=== PATIENT | female | born 1950 | race Caucasian/White ===

== ENCOUNTER → 2017-12-09 11:18 | Outpatient (CLI) | payer MEDICARE, OTHER, SELFPAY ==
[2017-12-09 12:11] LABS: Add Manual Diff / Slide Review NO; Basophils Percent Auto 0.7 % (0-2); Eosinophils Percent Auto 2.3 % (2-4); Hematocrit 37.7 % (36-46); Hemoglobin 12.7 g/dL (12.0-16.0); Lymphocytes Percent Auto 36.6 % (25-40); Mean Corpuscular HGB Conc 33.6 % (30-36); Mean Corpuscular Hemoglobin 31.8 PG (26-34); Mean Corpuscular Volume 94.5 fL (80-100); Monocytes Percent Auto 9.3 % (3-14); Neutrophils Absolute Auto 2900 /uL (3000-5900); Neutrophils Percent Auto 51.1 % (50-75); Platelet Count 332 X10^3/uL (150-400); Red Blood Cell Count 3.99 X10^6/uL (4.0-5.2); Red Cell Distribution Width 12.8 % (11.6-14.8); White Blood Cell Count 5.6 X10^3/uL (4.5-11.0)
[2017-12-09 12:48] LABS: HEMOLYSIS < 15 (0-50); Iron 71 ug/dL (37-170)
[2017-12-09 12:51] LABS: Alanine Aminotransferase 23 IU/L (9-52); Albumin 3.9 g/dL (3.5-5.0); Albumin Globulin Ratio 1.2 (1.0-2.8); Alkaline Phosphatase 106 U/L (38-126); Aspartate Aminotransferase 17 IU/L (14-36); BUN Creatinine Ratio 25.7 (6-22); Bilirubin Total 0.4 mg/dL (0.2-1.3); Blood Urea Nitrogen 18 mg/dL (7-17); Calcium 9.3 mg/dL (8.4-10.2); Carbon Dioxide 29 mmol/L (22-32); Chloride 104 mmol/L (98-107); Estimated Glomerular Filt Rate > 60.0 mL/min (>60); Globulin 3.2 g/dL (1.7-4.1); Glucose 86 mg/dL (80-110); HEMOLYSIS < 15 (0-50); Sodium 143 mmol/L (137-145); Total Protein 7.1 g/dL (6.3-8.2)
[2017-12-09 13:03] LABS: Percent Iron Saturation 21 % (15-50); Total Iron Binding Capacity 336 ug/dL (265-497); Transferrin 263 mg/dL (206-381)
[2017-12-09 13:06] LABS: Free T3, Triiodothyronine Free 3.75 pg/mL (2.77-5.27); Free T4, Direct Thyroxine 1.32 ng/dL (0.78-2.19)
[2017-12-09 13:20] LABS: Thyroid Stimulating Hormone 0.69 uIU/mL (0.47-4.68)
[2017-12-09 13:43] LABS: Vitamin B12 305 pg/mL (239-931)
== END ==
PROVIDERS: PCP Physician Assistant; Visit Provider Physician Assistant
DX: M05.79 Rheumatoid arthritis with rheumatoid factor of multiple sites without organ or systems involvement (principal); E53.8 Deficiency of other specified B group vitamins; E61.1 Iron deficiency; Z13.220 Encounter for screening for lipoid disorders; Z13.6 Encounter for screening for cardiovascular disorders
CPT/HCPCS: 36415; 80053; 82607; 82728; 83540; 83550; 84439; 84443; 84481; 85025

== ENCOUNTER → 2018-02-25 12:41 | Outpatient (CLI) | payer MEDICARE, OTHER, SELFPAY ==
--- NOTE | 2018-02-25 12:44 | DI.MG.S_ITS ---
BILATERAL DIGITAL DIAGNOSTIC MAMMOGRAM 3D/2D SHORT-TERM FOLLOW-UP: 02/25/2018 CLINICAL: Patient returns for a 6 month follow up of the left breast. Due for bilateral imaging. Comparison is made to exams dated: 12/11/2016 mammogram, 05/15/2015 mammogram, 03/30/2014 mammogram, 12/11/2016 ultrasound, and 12/11/2016 ultrasound - [facility]. The tissue of both breasts is heterogeneously dense. This may lower the sensitivity of mammography. The oval indistinct mass located central to the nipple at posterior depth in the left breast is unchanged in size from prior comparison exams, measuring approximately 0.5 cm in greatest diameter. This mass demontrated no ultrasound correlate on comparison ultrasound of 12/11/2016. No significant masses, calcifications, or other findings are seen in either breast. IMPRESSION: INCOMPLETE: NEEDS ADDITIONAL IMAGING EVALUATION Stable 0.5 cm mass in the left breast central to the nipple at posterior depth. A targeted ultrasound is recommended for further evaluation. This exam was interpreted at Station ID: [id number]. NOTE: For mammograms, a report in lay terms will be sent to the patient. Approximately 15% of breast malignancies will not be visualized mammographically. In the management of a palpable breast mass, a negative mammogram must not discourage biopsy of a clinically suspicious lesion. Electronically Signed By: Tomasz Acosta M.D. ecl/:02/25/2018 21:00:02 letter sent: Additional Imaging Needed ACR BI-RADS Category 0: Incomplete [id number]
--- NOTE | 2018-02-25 12:44 | DI.US.S_ITS ---
ULTRASOUND OF LEFT BREAST: 02/25/2018 CLINICAL: Patient returns for additional imaging over a suspected mass in the left breast. Comparison is made to exams dated: 02/25/2018 mammogram, 12/11/2016 mammogram, and 05/15/2015 mammogram - [facility]. Real-time and Doppler ultrasound of the left breast were performed. Hand scale images of the real-time examination were reviewed. Targeted ultrasound was performed in the region of the stable 0.5 cm mass in the left breast central to the nipple at posterior depth seen on comparison diagnostic mammography. No underlying correlating breast mass or abnormality is identified. Targeted ultrasound of the left breast at 6:00 position 5 cm from the nipple demonstrates a 0.9 x 0.7 x 0.4 cm oval circumscribed mass with fatty hilum most consistent with an intramammary lymph node. The mass is hypoechoic to isoechoic to adjacent breast tissue. There is no significant vascularity on doppler ultrasound. IMPRESSION: PROBABLY BENIGN - FOLLOW-UP RECOMMENDED 1) Negative ultrasound evaluation for the 0.5 cm oval mass in the left breast central to the nipple at posterior depth seen on comparison mammography. A follow-up diagnostic mammogram in 6 months is recommended to demonstrate continued stability. 2) 0.9 cm oval mass in the left breast at 6:00 position 5 cm from the nipple is probably benign and likely represents an intramammary lymph node or slightly heterogenous fat. A follow-up diagnostic ultrasound in 6 months is recommended to demonstrate continued stability. This exam was interpreted at Station ID: [id number]. Electronically Signed By: Tomasz Acosta M.D. ecl/:02/25/2018 21:06:43 letter sent: Followup Recommended Ultrasound BI-RADS: 3 Probably benign
== END ==
PROVIDERS: PCP Physician Assistant; Visit Provider Physician Assistant
DX: R92.8 Other abnormal and inconclusive findings on diagnostic imaging of breast (principal); N63.20 Unspecified lump in the left breast, unspecified quadrant
CPT/HCPCS: 76642; 77066; G0279

== ENCOUNTER 2018-08-12 10:21 | Day surgery (SDC) | payer MEDICARE, OTHER, SELFPAY ==
[2018-08-12] VITALS (7 sets, daily range): BP systolic 103–127; BP diastolic 47–67; PULSE 59–70; RESP 14–18; TEMP 36.4–36.9; O2SAT 95–104; BMI 25.5
--- NOTE | 2018-08-12 12:02 | PM.HP.1 ---
History of Present Illness Date Patient Seen: 08/12/18 Time Patient Seen: 12:02 Chief complaint: [id number] Narrative: Colorectal cancer and a half-brother and half-sister Patient History Medical History Rheumatoid arthritis involving multiple sites with positive rheumatoid factor (Chronic) Osteopenia (Chronic 10/22/10) Hypothyroidism (Chronic Unknown) Osteopenia (Chronic Unknown) Rheumatoid arthritis (Chronic Unknown) Surgical History S/P hip replacement (Resolved 2011) S/P shoulder replacement (Resolved 1994) Status post tubal ligation (1984) Family History Brother Age: 73 Coronary artery disease Obese Mother CVA (cerebral vascular accident) Father No problems noted. Social History household members: none Smoking Status: Former smoker (Quit in 1974) Family & Social History Family History Brother Age: 73 Coronary artery disease Obese Mother CVA (cerebral vascular accident) Father No problems noted. Social History: household members none Tobacco & Substance use: Smoking Status Former smoker Meds Home Medications Medication Instructions Recorded Confirmed Type ibuprofen 200 mg PO QDAY #0 01/29/13 08/12/18 History Calcium 600 600 mg PO DAILY 08/12/18 08/12/18 History Allergies Allergy/AdvReac Type Severity Reaction Status Date / Time No Known Drug Allergies Allergy Unverified 08/12/18 11:40 Exam Vital Signs (past 8 hours): - 08/12/18 10:58 Temperature 97.5 F L Pulse Rate 66 Respiratory Rate 18 Blood Pressure 127/67 Pulse Oximetry 98 Oxygen Delivery Method Room Air Narrative Exam Narrative: Oropharynx free of lesions Chest clear to auscultation percussion Cardiac exam reveals no S3 or murmur Assessment & Plan Assessment & Plan narrative: Family history of colorectal cancer. Last colonoscopy 13 years ago. Need for follow-up colonoscopy. Risks, benefits, alternatives have been explained.
--- NOTE | 2018-08-12 12:03 | PM.OP.ENDO ---
Operative Date/Time/Diagnoses Date of procedure: 08/12/18 Time of procedure: 12:03 Pre-op diagnosis: See indication and findings Procedure & Clinicians Study performed: Colonoscopy Same procedure as scheduled: Yes Indications: Family history of colon cancer Surgeon: Simon Max Procedure Notes Procedure in detail: After informed consent was obtained the patient was placed in left lateral decubitus position. The video colonoscope was introduced the rectum and slowly advanced to the cecum. On slow withdrawal mucosa was carefully examined. The scope was removed. The patient tolerated procedure well. Blood loss none Complications none Sedation Total sedation time 18 min Fentanyl 100 mcg Versed 6 mg IV titration Findings 1. Normal colonoscopy to cecum If at high risk due to these to have siblings with colon cancer than she should have follow-up colonoscopy in 5 years.
[2018-08-12] MEDS: MIDAZOLAM 5 MG/5 ML VIAL IV (12:35)
[2018-08-12] MEDS: fentaNYL 250 MCG/5 ML INJ IV (12:36)
--- NOTE | 2018-08-12 13:16 | SUR.PHASEI ---
Aroused to voice, denies pain/nausea. HOB up, juice given.States that she feels drowsy.
--- NOTE | 2018-08-12 13:23 | SUR.PHASEI ---
glasses and hearing aids returned to patient.
== END 2018-08-12 13:43 | disposition home or self-care (01) ==
PROVIDERS: PCP Physician Assistant; Visit Provider Internal Medicine Gastroenterology
PROC: 0DJD8ZZ Inspection of Lower Intestinal Tract, Via Natural or Artificial Opening Endoscopic (ICD-10-PCS; CPT 45378; principal; 2018-08-12 11:30)
DX: Z12.11 Encounter for screening for malignant neoplasm of colon (principal); Z80.0 Family history of malignant neoplasm of digestive organs; M06.9 Rheumatoid arthritis, unspecified; E03.9 Hypothyroidism, unspecified; Z87.891 Personal history of nicotine dependence
CPT/HCPCS: G0105; J2250; J3010

== ENCOUNTER → 2018-12-08 12:51 | Outpatient (CLI) | payer MEDICARE, OTHER, SELFPAY ==
[2018-12-08 13:27] LABS: Add Manual Diff / Slide Review NO; Basophils Absolute Auto 0 /uL (0-100); Basophils Percent Auto 0.7 % (0-2); Eosinophils Absolute Auto 100 /uL (0-450); Eosinophils Percent Auto 1.6 % (2-4); Hematocrit 39.2 % (36-46); Hemoglobin 13.2 g/dL (12.0-16.0); Lymphocytes Absolute Auto 2200 /uL (1100-4500); Mean Corpuscular HGB Conc 33.6 % (30-36); Mean Corpuscular Hemoglobin 32.1 PG (26-34); Mean Corpuscular Volume 95.8 fL (80-100); Monocytes Absolute Auto 600 /uL (0-900); Monocytes Percent Auto 10.8 % (3-14); Neutrophils Absolute Auto 2400 /uL (1500-7000); Neutrophils Percent Auto 45.9 % (50-75); Platelet Count 261 X10^3/uL (150-400); Red Cell Distribution Width 12.9 % (11.6-14.8); White Blood Cell Count 5.3 X10^3/uL (4.5-11.0)
[2018-12-08 14:24] LABS: Alanine Aminotransferase 17 IU/L (9-52); Albumin 4.3 g/dL (3.5-5.0); Albumin Globulin Ratio 1.4 (1.0-2.8); Alkaline Phosphatase 99 U/L (38-126); Aspartate Aminotransferase 19 IU/L (14-36); BUN Creatinine Ratio 23.8 (6-22); Bilirubin Total 0.4 mg/dL (0.2-1.3); Blood Urea Nitrogen 19 mg/dL (7-17); Calcium 9.7 mg/dL (8.4-10.2); Carbon Dioxide 28 mmol/L (22-32); Chloride 106 mmol/L (98-107); Estimated Glomerular Filt Rate > 60.0 mL/min (>60); Glucose 99 mg/dL (80-110); HEMOLYSIS < 15 (0-50); Iron 83 ug/dL (37-170); Potassium 5.3 mmol/L (3.4-5.1); Sodium 142 mmol/L (137-145); Total Protein 7.3 g/dL (6.3-8.2)
[2018-12-08 15:11] LABS: Vitamin B12 286 pg/mL (239-931)
[2018-12-08 15:30] LABS: Vitamin D 25 Hydroxy (D3) 32.7 ng/mL (30.0-100.0)
== END ==
PROVIDERS: PCP Physician Assistant; Visit Provider Physician Assistant
DX: E53.8 Deficiency of other specified B group vitamins (principal); E55.9 Vitamin D deficiency, unspecified; E61.1 Iron deficiency; M05.79 Rheumatoid arthritis with rheumatoid factor of multiple sites without organ or systems involvement; M85.80 Other specified disorders of bone density and structure, unspecified site
CPT/HCPCS: 36415; 80053; 82306; 82607; 83540; 85025

== ENCOUNTER → 2018-12-23 14:46 | Outpatient (CLI) | payer MEDICARE, OTHER, SELFPAY ==
[2018-12-23 17:11] LABS: Free T3, Triiodothyronine Free 4.01 pg/mL (2.77-5.27); Free T4, Direct Thyroxine 1.11 ng/dL (0.78-2.19)
[2018-12-23 17:26] LABS: Thyroid Stimulating Hormone 0.67 uIU/mL (0.47-4.68)
== END ==
PROVIDERS: PCP Physician Assistant; Visit Provider Physician Assistant
DX: R53.83 Other fatigue (principal)
CPT/HCPCS: 36415; 84439; 84443; 84481

== ENCOUNTER → 2018-12-30 13:04 | Outpatient (CLI) | payer MEDICARE, OTHER, SELFPAY ==
--- NOTE | 2018-12-30 13:06 | DI.MG.S_ITS ---
BILATERAL DIGITAL DIAGNOSTIC MAMMOGRAM 3D/2D: 12/30/2018 CLINICAL: Patient returns for a 6 month follow up of the left breast. Due bilaterally. Comparison is made to exams dated: 02/25/2018 mammogram, 12/11/2016 ultrasound, 12/11/2016 mammogram, and 03/30/2014 mammogram - [facility]. The tissue of both breasts is heterogeneously dense. This may lower the sensitivity of mammography. There is a stable benign 0.5 cm oval equal density mass with a circumscribed margin in the left breast central to the nipple posterior depth. No other significant masses, calcifications, or other findings are seen in either breast. IMPRESSION: INCOMPLETE: NEEDS ADDITIONAL IMAGING EVALUATION The small mass central to the nipple in the posterior left breast is stable compared ot the prior studies. Findings are benign given stability over time. An ultrasound will be performed to evaluate the mass seen at the 6:00 position on prior ultrasound. This exam was interpreted at Station ID: [id number]. NOTE: For mammograms, a report in lay terms will be sent to the patient. Approximately 15% of breast malignancies will not be visualized mammographically. In the management of a palpable breast mass, a negative mammogram must not discourage biopsy of a clinically suspicious lesion. Electronically Signed By: Scott Dent M.D. ddp/:12/30/2018 14:33:14 ACR BI-RADS Category 0: Incomplete [id number]
--- NOTE | 2018-12-30 13:06 | DI.US.S_ITS ---
LIMITED ULTRASOUND OF LEFT BREAST: 12/30/2018 CLINICAL: Patient returns for a 10 month follow up of the left breast, 6 month follow up had been requested. Comparison is made to exams [facility]2018 [facility] flow and real-time ultrasound of the left breast 6 o'clock region were performed on the areas of interest. There is 0.9 cm x 0.8 cm x 0.4 cm oval mass with an indistinct margin in the left breast at 6 o'clock anterior depth. This oval mass is hypoechoic. This abnormality is not significantly changed. There are calcifications within the mass. Color flow imaging demonstrates that there is no vascularity present. IMPRESSION: PROBABLY BENIGN The 0.9 cm x 0.8 cm x 0.4 cm oval mass in the left breast is probably benign. A follow-up ultrasound in 12 months is recommended to demonstrate 2 year stability. This exam was interpreted at Station ID: [id number]. Electronically Signed By: Scott demarco/:12/30/2018 14:36:03 letter sent: Followup Recommended Ultrasound BI-RADS: 3 Probably benign
== END ==
PROVIDERS: PCP Physician Assistant; Visit Provider Physician Assistant
DX: R92.8 Other abnormal and inconclusive findings on diagnostic imaging of breast (principal); N63.20 Unspecified lump in the left breast, unspecified quadrant
CPT/HCPCS: 76642; 77066; G0279

== ENCOUNTER → 2019-02-05 09:30 | Outpatient (CLI) | payer MEDICARE, OTHER, SELFPAY ==
--- NOTE | 2019-02-05 09:34 | DI.RAD.S_ITS ---
PROCEDURE: XR HIP W PEL IF DONE RT 2V INDICATIONS: Low back and right hip pain Hx of RA TECHNIQUE: AP pelvis with lateral view(s) of the right hip(s). COMPARISON: None. FINDINGS: Bones: No fractures or dislocations. Pelvic ring appears intact. No suspicious bony lesions. Soft tissues: The visualized bowel gas pattern is normal. No suspicious soft tissue calcifications. IMPRESSION: Prior left total hip arthroplasty, near severe hip joint osteoarthritis is present on the right. There is near [id number] articulation. No trauma found. Dictated by: Fran Ford M.D. on 02/05/2019 at 11:08 Approved by: Fran Ford M.D. on 02/05/2019 at 11:09
--- NOTE | 2019-02-05 09:34 | DI.RAD.S_ITS ---
PROCEDURE: XR LUMBAR SPINE 2-3V INDICATIONS: Low back and right hip pain Hx of RA TECHNIQUE: 2 views of the lumbar spine were acquired. COMPARISON: None. FINDINGS: Bones: 5 [id number] vertebrae are present. There is mildly levoscoliotic bony alignment centered at L2-3. No vertebral body compression fractures. No suspicious bony lesions. Soft tissues: Overlying bowel gas pattern is normal. No suspicious soft tissue calcifications. IMPRESSION: Mild degenerative disc disease and facet osteoarthritis from L2-3 inferiorly with associated mild levoscoliosis. The degenerative changes are most pronounced at L4-5 and L5-S1. Spinal and foraminal stenosis may be present at those 2 levels. Dictated by: Fran Ford M.D. on 02/05/2019 at 11:07 Approved by: Fran Ford M.D. on 02/05/2019 at 11:08
== END ==
PROVIDERS: PCP Physician Assistant; Visit Provider Physician Assistant
DX: M54.5 Low back pain (principal); M25.551 Pain in right hip; M16.11 Unilateral primary osteoarthritis, right hip; M05.79 Rheumatoid arthritis with rheumatoid factor of multiple sites without organ or systems involvement; M51.36 Other intervertebral disc degeneration, lumbar region; M47.816 Spondylosis without myelopathy or radiculopathy, lumbar region; M47.817 Spondylosis without myelopathy or radiculopathy, lumbosacral region; M41.86 Other forms of scoliosis, lumbar region; Z96.642 Presence of left artificial hip joint
CPT/HCPCS: 72100; 73502

== ENCOUNTER → 2019-02-17 08:23 | Outpatient (CLI) | payer MEDICARE, OTHER, SELFPAY ==
[2019-02-17 09:24] LABS: Cholesterol 226 mg/dL (140-199); HDL Cholesterol 96 mg/dL (40-60); LDL Cholesterol Calculated 114 mg/dL (<100); Triglycerides 80 mg/dL (35-150)
[2019-02-17 09:36] LABS: Vitamin D 25 Hydroxy (D3) 35.2 ng/mL (30.0-100.0)
[2019-02-17 10:14] LABS: Vitamin B12 569 pg/mL (239-931)
== END ==
PROVIDERS: PCP Physician Assistant; Visit Provider Physician Assistant
DX: E53.8 Deficiency of other specified B group vitamins (principal); E55.9 Vitamin D deficiency, unspecified; M85.80 Other specified disorders of bone density and structure, unspecified site; Z13.220 Encounter for screening for lipoid disorders; Z13.6 Encounter for screening for cardiovascular disorders
CPT/HCPCS: 36415; 80061; 82306; 82607

== ENCOUNTER → 2019-03-30 10:18 | Outpatient (CLI) | payer MEDICARE, OTHER, SELFPAY ==
[2019-03-30 11:35] LABS: Add Manual Diff / Slide Review NO; Basophils Absolute Auto 0 /uL (0-100); Basophils Percent Auto 0.4 % (0-2); Eosinophils Absolute Auto 100 /uL (0-450); Eosinophils Percent Auto 1.8 % (2-4); Hematocrit 40.4 % (36-46); Hemoglobin 13.7 g/dL (12.0-16.0); Lymphocytes Absolute Auto 1600 /uL (1100-4500); Lymphocytes Percent Auto 28.3 % (25-40); Mean Corpuscular Hemoglobin 32.5 PG (26-34); Mean Corpuscular Volume 95.4 fL (80-100); Monocytes Absolute Auto 600 /uL (0-900); Monocytes Percent Auto 10.5 % (3-14); Neutrophils Absolute Auto 3300 /uL (1500-7000); Platelet Count 296 X10^3/uL (150-400); Red Blood Cell Count 4.23 X10^6/uL (4.0-5.2); Red Cell Distribution Width 12.7 % (11.6-14.8); White Blood Cell Count 5.6 X10^3/uL (4.5-11.0)
[2019-03-30 11:49] LABS: Prothrombin Time 11.2 SECONDS (10.1-12.7)
[2019-03-30 12:05] LABS: Appearance Urine UA SL CLOUDY; Bilirubin Urine UA NEGATIVE (NEGATIVE); Color Urine UA YELLOW; Glucose Urine UA NEGATIVE (Negative); Ketones Urine UA NEGATIVE (NEGATIVE); Leukocyte Esterase Urine UA NEGATIVE (NEGATIVE); Nitrite Urine UA NEGATIVE (Negative); Occult Blood Urine UA 2+ (Negative); Protein Urine UA TRACE (Negative); Specific Gravity Urine UA >=1.030 (1.000-1.035); Urobilinogen Urine UA 0.2 E.U./dL (0.2)
[2019-03-30 12:07] LABS: Alanine Aminotransferase 18 IU/L (9-52); Albumin 4.4 g/dL (3.5-5.0); Albumin Globulin Ratio 1.3 (1.0-2.8); Alkaline Phosphatase 109 U/L (38-126); Aspartate Aminotransferase 22 IU/L (14-36); Bilirubin Total 0.5 mg/dL (0.2-1.3); Blood Urea Nitrogen 20 mg/dL (7-17); Calcium 9.8 mg/dL (8.4-10.2); Carbon Dioxide 27 mmol/L (22-32); Chloride 103 mmol/L (98-107); Estimated Glomerular Filt Rate > 60.0 mL/min (>60); Globulin 3.3 g/dL (1.7-4.1); Glucose 104 mg/dL (80-110); HEMOLYSIS < 15 (0-50); Potassium 5.1 mmol/L (3.4-5.1); Sodium 140 mmol/L (137-145); Total Protein 7.7 g/dL (6.3-8.2)
[2019-03-30 12:39] LABS: Bacteria Urine Many (>30); Culture Indicated Urine Cult Not Indicated; Mucus Urine 1+ (Negative); RBC Urine 1-5/HPF (0-5/HPF); Squamous Epithelial Cell Urine 1-5 /HPF (0-5/HPF); WBC Urine 1-5/HPF (0-5/HPF)
== END ==
PROVIDERS: PCP Physician Assistant; Visit Provider Physician Assistant
DX: Z01.818 Encounter for other preprocedural examination (principal)
CPT/HCPCS: 36415; 80053; 81001; 85025; 85610; 93005

== ENCOUNTER → 2019-08-05 09:22 | Outpatient (CLI) | payer MEDICARE, OTHER, SELFPAY | PROVIDERS: PCP Family Medicine; Visit Provider Physician Assistant | DX: R30.0 Dysuria (principal) | CPT/HCPCS: 87077; 87086; 87147; 87186 ==

== ENCOUNTER → 2020-04-21 11:15 | Outpatient (CLI) | payer MEDICARE, OTHER, SELFPAY ==
[2020-04-21 12:05] LABS: BUN Creatinine Ratio 27.1 (6-22); Blood Urea Nitrogen 19 mg/dL (7-17); Calcium 9.2 mg/dL (8.4-10.2); Carbon Dioxide 28 mmol/L (22-32); Chloride 106 mmol/L (98-107); Estimated Glomerular Filt Rate > 60.0 mL/min (>60); Glucose 91 mg/dL (80-110); HEMOLYSIS < 15 (0-50); Potassium 4.5 mmol/L (3.4-5.1); Sodium 138 mmol/L (137-145)
[2020-04-21 12:37] LABS: TSH w/ Reflex to FT4 0.62 uIU/mL (0.47-4.68)
[2020-04-22 06:57] LABS: Homocysteine 12.2 umol/L (0.0-19.2)
[2020-04-23 16:07] LABS: Methylmalonic Acid,Serum 201 nmol/L (0-378)
== END ==
PROVIDERS: PCP Family Medicine; Referring Provider Family Medicine; Visit Provider Family Medicine
DX: E53.8 Deficiency of other specified B group vitamins (principal); R53.83 Other fatigue; Z51.81 Encounter for therapeutic drug level monitoring; Z79.1 Long term (current) use of non-steroidal anti-inflammatories (NSAID)
CPT/HCPCS: 36415; 80048; 83090; 83921; 84443

== ENCOUNTER → 2020-05-30 12:33 | Outpatient (CLI) | payer MEDICARE, OTHER, SELFPAY ==
--- NOTE | 2020-05-30 12:35 | DI.US.S_ITS ---
LIMITED ULTRASOUND OF LEFT BREAST: 05/30/2020 CLINICAL: 12 month follow-up of mass left breast. Comparison is made to exams dated: 05/30/2020 mammogram, 12/30/2018 ultrasound, 12/30/2018 mammogram, 02/25/2018 ultrasound, 02/25/2018 mammogram, and 12/11/2016 ultrasound - [facility]. Real-time ultrasound of the left breast 6 o'clock region was performed on the area of interest. The previously identified oval mass in the left breast at 6 o'clock middle depth is no longer seen. IMPRESSION: BENIGN There is no sonographic evidence of malignancy. Previously visualized mass at 6:00 no longer visualized. This may correspond to the mammographic finding which is also no longer visualized. Findings may have represented an enlarged intramammary lymph node. Return to annual mammogram screening schedule is recommended. This exam was interpreted at Station ID: [id number]. Electronically Signed By: Scott Dent M.D. ddp/:05/30/2020 13:45:45 letter sent: Normal Exam Ultrasound BI-RADS: 2 Benign
--- NOTE | 2020-05-30 12:35 | DI.MG.S_ITS ---
BILATERAL DIGITAL DIAGNOSTIC MAMMOGRAM 3D/2D: 05/30/2020 CLINICAL: Two year stability check. Comparison is made to exams dated: 12/30/2018 mammogram, 02/25/2018 mammogram, and 12/11/2016 mammogram - [facility]. The tissue of both breasts is heterogeneously dense. This may lower the sensitivity of mammography. The oval mass in the left breast central to the nipple posterior depth is no longer seen. No other significant masses, calcifications, or other findings are seen in either breast. IMPRESSION: INCOMPLETE: NEEDS ADDITIONAL IMAGING EVALUATION An ultrasound is recommended for followup of the previously described mass at the 6:00 position seen on ultrasound. Ultrasound will be performed immediately following the current exam. This exam was interpreted at Station ID: [id number]. NOTE: For mammograms, a report in lay terms will be sent to the patient. Approximately 15% of breast malignancies will not be visualized mammographically. In the management of a palpable breast mass, a negative mammogram must not discourage biopsy of a clinically suspicious lesion. Electronically Signed By: Scott Dent M.D. dddevin/:05/30/2020 13:29:39 ACR BI-RADS Category 0: Incomplete [id number]
== END ==
PROVIDERS: PCP Family Medicine; Referring Provider Family Medicine; Visit Provider Family Medicine
DX: R92.8 Other abnormal and inconclusive findings on diagnostic imaging of breast (principal); N63.25 Unspecified lump in the left breast, overlapping quadrants
CPT/HCPCS: 76642; 77066; G0279

== ENCOUNTER → 2020-07-18 14:33 | Outpatient (CLI) | payer MEDICARE, OTHER, SELFPAY ==
[2020-07-18] MEDS: COVID-19 VACC #1, MRNA(MOD) 100 MCG/0.5 ML VIAL IM (14:37)
== END ==
PROVIDERS: PCP Family Medicine; Visit Provider Internal Medicine
DX: Z23 Encounter for immunization (principal)
CPT/HCPCS: 0011A; 91301

== ENCOUNTER → 2020-08-15 14:39 | Outpatient (CLI) | payer MEDICARE, OTHER, SELFPAY ==
[2020-08-15] MEDS: COVID-19 VACC #2, MRNA(MOD) 100 MCG/0.5 ML VIAL IM (14:47)
== END ==
PROVIDERS: PCP Family Medicine; Visit Provider Internal Medicine
DX: Z23 Encounter for immunization (principal)
CPT/HCPCS: 0012A; 91301

== ENCOUNTER 2021-02-03 16:10 | Emergency (ER) | payer MEDICARE, OTHER, SELFPAY ==
[2021-02-03 16:42] VITALS: BP 140/100; PULSE 70; RESP 20; TEMP 37.1; O2SAT 97; BMI 25.7
--- NOTE | 2021-02-03 17:24 | ED_ITS ---
HPI - Eye Problem General Chief complaint: Eye Problems Stated complaint: Euphorbia sap poss in both eyes/pain Time Seen by Provider: 02/03/21 17:09 History of Present Illness HPI Narrative: 70-year-old woman with history of rheumatoid arthritis presents after chopping up a Euphorbia plant for disposal and accidentally got some of the latex sap in her eyes. She comes in with significant pain and tearing from the exposure. Related Data Home Medications Medication Instructions Recorded Confirmed cholecalciferol (vitamin D3) 3,000 unit PO DAILY PRN ml 01/05/19 05/26/20 cyanocobalamin (vitamin B-12) 1,000 mcg IM QMONTH 03/01/19 05/26/20 1,000 mcg/mL injection solution ibuprofen 200 mg tablet 400 mg PO QAM tab 03/01/19 05/26/20 Allergies Allergy/AdvReac Type Severity Reaction Status Date / Time No Known Drug Allergies Allergy Verified 02/03/21 16:41 Review of Systems Review of Systems Narrative: Pertinent positive and negative findings as per HPI Remainder of review of systems is otherwise unremarkable for Constitutional: Fevers, chills, weakness ENT: No sore throat, neck pain, ear pain CV: Chest pain, palpitations, Respiratory: Cough, wheeze, dyspnea GI: Nausea, vomiting, diarrhea, : Dysuria, hematuria, Patient History Medical History Hypothyroidism (10/22/10) NSAID long-term use Osteopenia (10/22/10) Osteopenia (Unknown) Pernicious anemia Rheumatoid arthritis (Unknown) Rheumatoid arthritis involving multiple sites with positive rheumatoid factor (~195) Surgical History History of left hip replacement (~2019) History of right hip replacement (~2011) S/P shoulder replacement (1994) Status post tubal ligation (1984) Family History Brother Age: 75 Coronary artery disease Obese Mother CVA (cerebral vascular accident) Father No problems noted. Social History household members: none Smoking Status: Former smoker Tobacco: How many years used: 4 second hand exposure: No alcohol intake: current substance use type: does not use Smoking Status: Former smoker tobacco type: cigarettes alcohol intake frequency: holidays/special occasions only Substance Use Type: does not use Exam Narrative Exam Narrative: General: Alert appropriate in no acute distress HEENT: Sclera are mildly injected, no obvious corneal clouding, significant tearing and mild erythema around the eyes from rubbing. Too much tearing and pain for formal visual testing but reports no noted significant visual changes. Respiratory: Able to speak in full sentences, no obvious respiratory distress Skin: No obvious rashes, warm and dry Neurologic: Grossly intact no obvious asymmetries or abnormalities Psych: appropriate insight and affect, cooperative Initial Vital Signs Initial Vital Signs: Vital Signs Temperature 98.7 F 02/03/21 16:42 Pulse Rate 70 02/03/21 16:42 Respiratory Rate 20 02/03/21 16:42 Blood Pressure 140/100 H 02/03/21 16:42 Pulse Oximetry 97 02/03/21 16:42 Course Orders Ordered: Discontinued Medications Proparacaine HCl (Proparacaine 0.5% Ophth Hope) 1 drops EYE-BOTH NOW ONE Stop: 02/03/21 17:46 Last Admin: 02/03/21 17:56 Dose: 1 drop Documented by: NANCY Vital Signs Vital signs: Vital Signs - 8 hr 02/03/21 16:42 Temperature 98.7 F Pulse Rate 70 Respiratory Rate 20 Blood Pressure 140/100 H Pulse Oximetry 97 MDM - Eye Problem MDM Narrative Medical decision making narrative: 70-year-old woman who was working with you for be a species in her green house notes significant white milky sap from the cutting some tried to be very careful but inadvertently did get some in both eyes. Initially went to urgent care after washing eyes out well at home. Significant pain tearing and does not describe any vision change at this time but is having too much tearing and pain to do formal visual acuity testing or intra-ocular pressures. Pre contact with poison Control indicated their only recommendation was thorough rinsing of the eyes and pain control as needed. There is no ophthalmology on-call for [facility] formally this weekend. thoroughly rinsed with Asad lens with significant improvement in pain. Declined any oral pain control. Safe for home discharge. 02/04/21 phone call follow-up. She notes mild scleral irritation and still a bit of grainy feeling in the right eye but vision is otherwise okay and she is doing well. Discharge Plan Departure Patient Disposition: Home Clinical Impression: Chemical exposure of eye Instructions: DI for Chemical Eye Burn Activity Restrictions/Additional Instructions: Thank you for coming in today Euphorpia sap in your eyes technically counts as a chemical eye burn. In the emergency room, you are given some numbing eye drops and then we used copious amounts of irrigation with the Asad lens (the special contact lens made just for that purpose). After all of the irrigation, you have clearly improved. If you continue to have some burning this evening you can use simple saline drops to continue to rinse the eyes. If you are noticing any cloudiness to your vision or continue difficulty with your eyes tomorrow please call your eye doctor and ask to speak to the doctor car sales consultant. It is okay to use Tylenol to help with pain If you have new or worsening symptoms please feel free to return to the ER this evening. I wish you the best Prescriptions: No Action cholecalciferol (vitamin D3) 1,000 unit/drop drops 3,000 unit PO DAILY PRNRF: 0 cyanocobalamin (vitamin B-12) 1,000 mcg/mL solution 1,000 mcg IM QMONTH RF: 0 ibuprofen 200 mg tablet 400 mg PO QAM RF: 0 Referrals: Carey Guillen DO [Primary Care Provider] -
[2021-02-03] MEDS: PROPARACAINE 0.5% OPHTH SOL 1 DROPS EYE-BOTH (17:56)
[2021-02-03 19:40] VITALS: BP 137/76; PULSE 77; RESP 17; O2SAT 99
--- NOTE | 2021-02-03 19:53 | PC.NURSE ---
I spoke with poison control and updated them on the status of the patient.
== END 2021-02-03 19:57 | disposition home or self-care (01) ==
PROVIDERS: Emergency Provider Emergency Medicine; PCP Family Medicine
DX: T65.891A Toxic effect of other specified substances, accidental (unintentional), initial encounter (principal); T26.92XA Corrosion of left eye and adnexa, part unspecified, initial encounter; T26.91XA Corrosion of right eye and adnexa, part unspecified, initial encounter; Y93.H2 Activity, gardening and landscaping
CPT/HCPCS: 99283; 99284

== ENCOUNTER → 2021-03-30 07:38 | Outpatient (CLI) | payer MEDICARE, OTHER, SELFPAY ==
[2021-03-30 09:12] LABS: Alanine Aminotransferase 17 IU/L (<35); Albumin 4.5 g/dL (3.5-5.0); Albumin Globulin Ratio 1.6 (1.0-2.8); Alkaline Phosphatase 97 U/L (38-126); Aspartate Aminotransferase 25 IU/L (14-36); BUN Creatinine Ratio 20.3 (6-22); Bilirubin Total 0.6 mg/dL (0.2-1.3); Blood Urea Nitrogen 15 mg/dL (7-17); Calcium 9.3 mg/dL (8.4-10.2); Carbon Dioxide 29 mmol/L (22-32); Chloride 106 mmol/L (98-107); Cholesterol 227 mg/dL (140-199); Estimated Glomerular Filt Rate > 60.0 mL/min (>60); Globulin 2.9 g/dL (1.7-4.1); Glucose 102 mg/dL (80-110); HDL Cholesterol 83 mg/dL (40-60); HEMOLYSIS < 15 (0-50); LDL Cholesterol Calculated 134 mg/dL (<100); Potassium 4.4 mmol/L (3.4-5.1); Sodium 142 mmol/L (137-145); Total Protein 7.4 g/dL (6.3-8.2); Triglycerides 51 mg/dL (35-150)
[2021-03-30 09:29] LABS: Vitamin D 25 Hydroxy (D3) 46.5 ng/mL (30.0-100.0)
[2021-03-30 09:59] LABS: Vitamin B12 482 pg/mL (239-931)
== END ==
PROVIDERS: PCP Family Medicine; Referring Provider Family Medicine; Visit Provider Family Medicine
DX: D51.0 Vitamin B12 deficiency anemia due to intrinsic factor deficiency (principal); E78.5 Hyperlipidemia, unspecified; M85.80 Other specified disorders of bone density and structure, unspecified site; E53.8 Deficiency of other specified B group vitamins; D55.9 Anemia due to enzyme disorder, unspecified
CPT/HCPCS: 36415; 80053; 80061; 82306; 82607

== ENCOUNTER → 2021-04-23 12:01 | Outpatient (CLI) | payer MEDICARE, OTHER, SELFPAY ==
--- NOTE | 2021-04-23 12:03 | DI.US.S_ITS ---
PROCEDURE: US CAROTID DOPPLER BI INDICATIONS: STENOSIS TECHNIQUE: Color and pulse Doppler interrogation was performed of both carotid systems, with image documentation and velocity measurements. COMPARISON: None. FINDINGS: Stenosis calculations are based on SRU (Society of Radiologists in Ultrasound) criteria. The flow velocities and the arterial waveforms are normal within both carotid arterial systems. The estimated degree of internal carotid artery stenosis is less than 50%. Antegrade flow is confirmed within both vertebral arteries. IMPRESSION: No hemodynamically significant stenosis is seen. Dictated by: Jassi Long M.D. on 04/23/2021 at 12:18 Approved by: Jassi Long M.D. on 04/23/2021 at 12:19
== END ==
PROVIDERS: PCP Family Medicine; Referring Provider Family Medicine; Visit Provider Family Medicine
DX: I65.29 Occlusion and stenosis of unspecified carotid artery (principal); M05.79 Rheumatoid arthritis with rheumatoid factor of multiple sites without organ or systems involvement; E78.5 Hyperlipidemia, unspecified; Z82.49 Family history of ischemic heart disease and other diseases of the circulatory system
CPT/HCPCS: 93880

== ENCOUNTER 2021-09-17 10:40 | Emergency (ER) | payer MEDICARE, OTHER, SELFPAY ==
--- NOTE | 2021-09-17 11:04 | DI.RAD.S_ITS ---
PROCEDURE: XR CHEST 1V INDICATIONS: Shortness of breath TECHNIQUE: One view of the chest was acquired. COMPARISON: CR, CHEST 2 VIEW, 05/02/2014, 13:41. FINDINGS: Surgical changes and devices: None. Lungs and pleura: There are infiltrates in left mid to lower lung zone and right lower lung zone, suspicious for pneumonia. No pleural effusions or pneumothorax. Mediastinum: Mediastinal contours appear normal. Heart size is normal. Bones and chest wall: No suspicious bony lesions. Overlying soft tissues appear unremarkable. There is left shoulder arthroplasty. Severe right glenohumeral joint degeneration. IMPRESSION: Bilateral pneumonia. Dictated by: Aden Lees M.D. on 09/17/2021 at 11:44 Approved by: Aden Lees M.D. on 09/17/2021 at 11:46
[2021-09-17 11:05] VITALS: BP 150/65; PULSE 92; RESP 18; TEMP 37; O2SAT 96; BMI 25.7
[2021-09-17 11:20] LABS: Add Manual Diff / Slide Review NO; Basophils Absolute Auto 0 /uL (0-100); Basophils Percent Auto 0.3 % (0-2); Eosinophils Absolute Auto 0 /uL (0-450); Eosinophils Percent Auto 0.3 % (2-4); Hematocrit 36.1 % (36-46); Hemoglobin 12.3 g/dL (12.0-16.0); Lymphocytes Absolute Auto 1100 /uL (1100-4500); Lymphocytes Percent Auto 7.9 % (25-40); Mean Corpuscular HGB Conc 34.1 % (30-36); Mean Corpuscular Volume 93.7 fL (80-100); Monocytes Absolute Auto 1300 /uL (0-900); Monocytes Percent Auto 9.4 % (3-14); Neutrophils Absolute Auto 11000 /uL (1500-7000); Neutrophils Percent Auto 82.1 % (50-75); Platelet Count 223 X10^3/uL (150-400); Red Blood Cell Count 3.85 X10^6/uL (4.0-5.2); Red Cell Distribution Width 12.8 % (11.6-14.8); White Blood Cell Count 13.4 X10^3/uL (4.5-11.0)
--- NOTE | 2021-09-17 11:21 | ED.GENADULT ---
HPI - General Adult General Chief complaint: Back Pain/Injury Stated complaint: R/O blood clot in lungs- sent by [facility] Time Seen by Provider: 09/17/21 11:03 Source: patient Mode of arrival: Ambulatory Limitations: no limitations History of Present Illness HPI narrative: Patient is a 71-year-old female. She was sent over from the walk-in clinic for evaluation of potential pulmonary embolism. She went to the walk-in clinic because she was having sharp pain in her right lower lung shook with deep breaths. When she is not taking a deep breath she is not having discomfort. She is not having any shortness of breath. No chest pain. The symptoms started couple days ago after she got off of a flight from [place]. She has never had blood clot in the past. No swelling in her legs. No prior cardiac issues. Not on anticoagulation. No coughing. No fevers. Has not tried anything for her symptoms prior to arrival. Related Data Home Medications Medication Instructions Recorded Confirmed cholecalciferol (vitamin D3) 3,000 unit PO DAILY PRN ml 01/05/19 04/13/21 cyanocobalamin (vitamin B-12) 1,000 mcg IM QMONTH 03/01/19 04/13/21 1,000 mcg/mL injection solution ibuprofen 200 mg tablet 400 mg PO QAM tab 03/01/19 04/13/21 Previous Rx's Medication Instructions Recorded azithromycin 250 mg tablet See Rx Instructions .ROUTE 09/17/21 .COMPLEX #6 tab Allergies Allergy/AdvReac Type Severity Reaction Status Date / Time No Known Drug Allergies Allergy Verified 09/17/21 11:22 Review of Systems Review of Systems ROS Unobtainable: All systems reviewed & are unremarkable except as noted in HPI and below Patient History Medical History Hypothyroidism (10/22/10) NSAID long-term use Osteopenia (05/04/08) Pernicious anemia Rheumatoid arthritis (Unknown) Rheumatoid arthritis involving multiple sites with positive rheumatoid factor (~195) Surgical History History of left hip replacement (~2019) History of right hip replacement (~2011) S/P shoulder replacement (1994) Status post tubal ligation (1984) Family History Brother Age: 75 Coronary artery disease Obese Mother CVA (cerebral vascular accident) Father No problems noted. Social History household members: none Smoking Status: Former smoker Tobacco: How many years used: 4 second hand exposure: No alcohol intake: current substance use type: does not use Smoking Status: Former smoker tobacco type: cigarettes alcohol intake frequency: holidays/special occasions only Substance Use Type: does not use Exam Initial Vital Signs Initial Vital Signs: Vital Signs Temperature 98.6 F 09/17/21 11:05 Pulse Rate 92 H 09/17/21 11:05 Respiratory Rate 18 09/17/21 11:05 Blood Pressure 150/65 H 09/17/21 11:05 Pulse Oximetry 96 09/17/21 11:05 Const General: cooperative, healthy appearing, comfortable, well developed and well groomed HENMT Head: normal to inspection and normocephalic Resp Effort & Inspection: normal respiratory effort Auscultation: clear to auscultation bilaterally Other: Patient has no tenderness to palpation of the area where she is having discomfort in her left posterior lower lung shook. She does seem to have quite a bit of discomfort at the end of very deep breaths. Cardio Rate: regular rate Rhythm: regular rhythm GI Inspection: normal to inspection Skin General: no rashes or lesions noted Neuro General: patient alert, patient awake, patient oriented x3 and moves all extremities Extrem General: No edema Psych Appearance: grossly normal and well kempt Scores PERC Score Age greater than or equal to 50 years: Yes Heart rate greater than or equal to 100 bpm: No Room Air O2 Sat less than 95%: No Unilateral leg swelling: No Recent trauma or surgery: No Hemoptysis: No Prior PE or DVT: No Hormone Use: No Total PERC Score: 1 Course Orders Ordered: ED Orders 09/17/21 11:04 XR chest 1V Stat EKG-12 Lead Stat 09/17/21 11:10 Complete Blood Count AUTO DIFF Stat Comprehensive Metabolic Panel Stat D Dimer Stat Lipase Stat NT-proBNP (BNP-Adult 18+) Stat Procalcitonin Stat Troponin & CK Cardiac Panel Stat 09/17/21 11:53 CT angio chest PE protocol Stat 09/17/21 12:19 COVID19 -Nasal swab/Pre-Proc Stat 09/17/21 13:30 Urine Microscopic Stat Vital Signs Vital signs: Vital Signs - 8 hr 09/17/21 11:05 09/17/21 12:48 09/17/21 13:00 Temperature 98.6 F Pulse Rate 92 H 87 89 Respiratory Rate 18 31 H 31 H Blood Pressure 150/65 H 133/63 Pulse Oximetry 96 97 96 Medical Decision Making Lab Data Lab results reviewed: Yes I reviewed the patient's lab results. Result diagrams: 09/17/21 11:10 09/17/21 11:10 Labs: Lab Results 09/17/21 09/17/21 09/17/21 Range/Units 11:10 11:10 11:10 WBC 13.4 H (4.5-11.0) X10^3/uL RBC 3.85 L (4.0-5.2) X10^6/uL Hgb 12.3 (12.0-16.0) g/dL Hct 36.1 (36-46) % MCV 93.7 (80-100) fL MCH 32.0 (26-34) PG MCHC 34.1 (30-36) % RDW 12.8 (11.6-14.8) % Plt Count 223 (150-400) X10^3/uL Neut % (Auto) 82.1 H (50-75) % Lymph % (Auto) 7.9 L (25-40) % [place] % (Auto) 9.4 (3-14) % Eos % (Auto) 0.3 L (2-4) % Baso % (Auto) 0.3 (0-2) % Neut # (Auto) 53675 H (5337-2867) /uL Lymph # (Auto) 1100 (6797-5658) /uL [place] # (Auto) 1300 H (0-900) /uL Eos # (Auto) 0 (0-450) /uL Baso # (Auto) 0 (0-100) /uL D-Dimer 739 H (<230) ng/mL Sodium 132 L (137-145) mmol/L Potassium 4.1 (3.4-5.1) mmol/L Chloride 104 (98-107) mmol/L Carbon Dioxide 21 L (22-32) mmol/L BUN 14 (7-17) mg/dL Creatinine 0.77 (0.52-1.04) mg/dL Estimated GFR > 60.0 (>60) mL/min BUN/Creatinine Ratio 18.2 (6-22) Glucose 128 H (80-110) mg/dL Calcium 8.8 (8.4-10.2) mg/dL Total Bilirubin 1.0 (0.2-1.3) mg/dL AST 32 (14-36) IU/L ALT 24 (<35) IU/L Alkaline Phosphatase 98 (38-126) U/L Total Creatine Kinase (30-135) U/L CK-MB (CK-2) CK-MB (CK-2) Rel Index Troponin I (0.01-0.034) ng/mL NT-Pro-B Natriuret Pep (<125) pg/mL Total Protein 8.0 (6.3-8.2) g/dL Albumin 4.3 (3.5-5.0) g/dL Globulin 3.7 (1.7-4.1) g/dL Albumin/Globulin Ratio 1.2 (1.0-2.8) Lipase 49 (23-300) U/L Procalcitonin (<0.5) ng/mL SARS-CoV-2 (PCR) (Negative) 09/17/21 09/17/21 09/17/21 Range/Units 11:10 11:10 11:10 WBC (4.5-11.0) X10^3/uL RBC (4.0-5.2) X10^6/uL Hgb (12.0-16.0) g/dL Hct (36-46) % MCV (80-100) fL MCH (26-34) PG MCHC (30-36) % RDW (11.6-14.8) % Plt Count (150-400) X10^3/uL Neut % (Auto) (50-75) % Lymph % (Auto) (25-40) % [place] % (Auto) (3-14) % Eos % (Auto) (2-4) % Baso % (Auto) (0-2) % Neut # (Auto) (6742-0091) /uL Lymph # (Auto) (8878-3163) /uL [place] # (Auto) (0-900) /uL Eos # (Auto) (0-450) /uL Baso # (Auto) (0-100) /uL D-Dimer (<230) ng/mL Sodium (137-145) mmol/L Potassium (3.4-5.1) mmol/L Chloride (98-107) mmol/L Carbon Dioxide (22-32) mmol/L BUN (7-17) mg/dL Creatinine (0.52-1.04) mg/dL Estimated GFR (>60) mL/min BUN/Creatinine Ratio (6-22) Glucose (80-110) mg/dL Calcium (8.4-10.2) mg/dL Total Bilirubin (0.2-1.3) mg/dL AST (14-36) IU/L ALT (<35) IU/L Alkaline Phosphatase (38-126) U/L Total Creatine Kinase 49 (30-135) U/L CK-MB (CK-2) TNP CK-MB (CK-2) Rel Index TNP Troponin I < 0.012 (0.01-0.034) ng/mL NT-Pro-B Natriuret Pep 959 H (<125) pg/mL Total Protein (6.3-8.2) g/dL Albumin (3.5-5.0) g/dL Globulin (1.7-4.1) g/dL Albumin/Globulin Ratio (1.0-2.8) Lipase (23-300) U/L Procalcitonin 0.14 (<0.5) ng/mL SARS-CoV-2 (PCR) (Negative) 09/17/21 Range/Units 12:20 WBC (4.5-11.0) X10^3/uL RBC (4.0-5.2) X10^6/uL Hgb (12.0-16.0) g/dL Hct (36-46) % MCV (80-100) fL MCH (26-34) PG MCHC (30-36) % RDW (11.6-14.8) % Plt Count (150-400) X10^3/uL Neut % (Auto) (50-75) % Lymph % (Auto) (25-40) % [place] % (Auto) (3-14) % Eos % (Auto) (2-4) % Baso % (Auto) (0-2) % Neut # (Auto) (2971-5801) /uL Lymph # (Auto) (8343-4190) /uL [place] # (Auto) (0-900) /uL Eos # (Auto) (0-450) /uL Baso # (Auto) (0-100) /uL D-Dimer (<230) ng/mL Sodium (137-145) mmol/L Potassium (3.4-5.1) mmol/L Chloride (98-107) mmol/L Carbon Dioxide (22-32) mmol/L BUN (7-17) mg/dL Creatinine (0.52-1.04) mg/dL Estimated GFR (>60) mL/min BUN/Creatinine Ratio (6-22) Glucose (80-110) mg/dL Calcium (8.4-10.2) mg/dL Total Bilirubin (0.2-1.3) mg/dL AST (14-36) IU/L ALT (<35) IU/L Alkaline Phosphatase (38-126) U/L Total Creatine Kinase (30-135) U/L CK-MB (CK-2) CK-MB (CK-2) Rel Index Troponin I (0.01-0.034) ng/mL NT-Pro-B Natriuret Pep (<125) pg/mL Total Protein (6.3-8.2) g/dL Albumin (3.5-5.0) g/dL Globulin (1.7-4.1) g/dL Albumin/Globulin Ratio (1.0-2.8) Lipase (23-300) U/L Procalcitonin (<0.5) ng/mL SARS-CoV-2 (PCR) Negative (Negative) Urine Dip Bedside Urine Glucose Negative Bedside Urine Bilirubin - Negative Bedside Urine Ketone - Negative Urine Specific [place] 1.010 Bedside Urine Occult Blood +++ Bedside Urine pH 6.0 Bedside Urine Protein +/- 15 Bedside Urine Urobilinogen +/- 1mg Bedside Urine Nitrite - Negative Bedside Urine Leukocytes - Negative Esterase Point of care testing: Urine Dip Bedside Urine Glucose Negative Bedside Urine Bilirubin - Negative Bedside Urine Ketone - Negative Urine Specific [place] 1.010 Bedside Urine Occult Blood +++ Bedside Urine pH 6.0 Bedside Urine Protein +/- 15 Bedside Urine Urobilinogen +/- 1mg Bedside Urine Nitrite - Negative Bedside Urine Leukocytes - Negative Esterase Imaging Data Chest x-ray: Radiologist's Impression: [address] [address] XRay Report Signed Patient: Amanda Chopra MR#: [id number] : 1950 Acct:[id number] Age/Sex: 71 / F Date of Service: 09/17/21 Loc: ED Accession Number: [id number] ?? Procedure: XR chest 1V Ordering Provider: Juan Hernandez D.O. PROCEDURE:? XR CHEST 1V ? INDICATIONS:? Shortness of breath ? TECHNIQUE:? One view of the chest was acquired.? ? COMPARISON:? CR, CHEST 2 VIEW, 05/02/2014, 13:41. ? FINDINGS:? ? Surgical changes and devices:? None.? ? Lungs and pleura:? There are infiltrates in left mid to lower lung zone and right lower lung zone, suspicious for pneumonia.? No pleural effusions or pneumothorax.? ? Mediastinum:? Mediastinal contours appear normal.? Heart size is normal.? ? Bones and chest wall:? No suspicious bony lesions.? Overlying soft tissues appear unremarkable.? There is left shoulder arthroplasty.? Severe right glenohumeral joint degeneration. ? IMPRESSION:? Bilateral pneumonia. ? ? Dictated by: Aden Lees M.D. on 09/17/2021 at 11:44 ? ? Approved by: Aden Lees M.D. on 09/17/2021 at 11:46? CT scan - chest: Radiologist's Impression: [address] [address] [address] Scan Report Signed Patient: Amanda Chopra MR#: [id number] : 1950 Acct:[id number] Age/Sex: 71 / F Date of Service: 09/17/21 Loc: ED Accession Number: [id number] ?? Procedure: CT angio chest PE protocol Ordering Provider: Juan Hernandez D.O. PROCEDURE:? CT ANGIO CHEST PE PROTOCOL ? INDICATIONS:? Chest pain, shortness of breath, tachycardia ? TECHNIQUE:? After the administration of intravenous contrast, 2 mm thick sections acquired from the pulmonary apices to the posterior costophrenic angles.? 3-dimensional maximum intensity projection (MIP) coronal and sagittal reformats were then acquired through the thorax.? For radiation dose reduction, the following was used:? automated exposure control, adjustment of mA and/or kV according to patient size.? ? COMPARISON:? [facility], CR, XR CHEST 1V, 09/17/2021, 11:08. ? FINDINGS:? Image quality:? Excellent.? ? Pulmonary arteries:? Pulmonary arteries are normal in size, and demonstrate no intraluminal filling defects to suggest central pulmonary embolism.? ? Lungs and pleura:? Bilateral patchy airspace infiltrates consistent with pneumonia.? No pleural effusions or pneumothorax.? Central and peripheral airways are patent.? ? Mediastinum:? Heart size is normal, without pericardial effusion.? Mild coronary artery atherosclerosis.? No mediastinal or hilar adenopathy by size criteria.? Calcified lymph nodes in mediastinum and lisa are likely sequelae of remote granulomatous infections.? Thoracic aorta is normal in caliber and enhancement.? Esophagus is normal in caliber.? Small hiatal hernia.? ? Bones and chest wall:? No suspicious bony lesions.? Ribs and thoracic spine appear intact throughout.? Thyroid gland is normal.? No axillary or supraclavicular adenopathy.? Left shoulder arthroplasty.? Severe right shoulder joint degeneration. ? Abdomen:? Visualized upper abdominal solid organs appear normal in the early arterial phase of enhancement.? ? IMPRESSION:? ? 1. No evidence for pulmonary embolism. 2. Bilateral pneumonia.? Consider COVID-19 pneumonia. ? Dictated by: Aden Lees M.D. on 09/17/2021 at 12:13 ? ? Approved by: Aden Lees M.D. on 09/17/2021 at 12:19 ECG Data Attestation: I personally reviewed and interpreted this ECG as follows: Interpretation: Sinus rhythm Ventricular rate of 94 Normal axis Normal QRS Normal QTC Artifact noted in V3 V4 Nonspecific ST T wave changes MDM Narrative Medical decision making narrative: Patient is afebrile. No cough. Does have a leukocytosis. Also has pleuritic left-sided chest discomfort. Chest x-ray concerning for bilateral pneumonia. Patient's COVID is negative. She had COVID approximately 2 months ago which she is describes as very mild. She has also vaccinated against COVID. The CT scan also shows bilateral infiltrates consistent with pneumonia however no pulmonary embolism. I have low suspicion for ACS given her presentation. Plan abuse to treat her with antibiotics. I did discuss all of this with her. We discussed risks and benefits and return precautions and follow-up instructions. He expressed understanding and agreement. Discharge Plan Departure Patient Disposition: Home Clinical Impression: Pneumonia, Pleurisy Instructions: Pleurisy, DI for Pneumonia -- Adult Activity Restrictions/Additional Instructions: Please take all the medications as directed and continue to take your anti-inflammatories. Contact your primary doctor for a follow-up. Return to the emergency department for any new or worsening symptoms. Prescriptions: New azithromycin 250 mg tablet See Rx Instructions .ROUTE .COMPLEX Qty: 6 0RF Rx Instructions: For 250 mg dose pack: take 500 mg today (day 1), then 250 mg for 4 days (days 2-5) No Action cholecalciferol (vitamin D3) 1,000 unit/drop drops 3,000 unit PO DAILY PRN0RF cyanocobalamin (vitamin B-12) 1,000 mcg/mL solution 1,000 mcg IM QMONTH 0RF ibuprofen 200 mg tablet 400 mg PO QAM 0RF Referrals: Naya Ruth MD [Primary Care Provider] -
[2021-09-17 11:34] LABS: D Dimer 739 ng/mL (<230)
[2021-09-17 11:36] LABS: Alanine Aminotransferase 24 IU/L (<35); Albumin 4.3 g/dL (3.5-5.0); Albumin Globulin Ratio 1.2 (1.0-2.8); Alkaline Phosphatase 98 U/L (38-126); Aspartate Aminotransferase 32 IU/L (14-36); BUN Creatinine Ratio 18.2 (6-22); Blood Urea Nitrogen 14 mg/dL (7-17); Calcium 8.8 mg/dL (8.4-10.2); Carbon Dioxide 21 mmol/L (22-32); Chloride 104 mmol/L (98-107); Creatine Kinase 49 U/L (30-135); Estimated Glomerular Filt Rate > 60.0 mL/min (>60); Globulin 3.7 g/dL (1.7-4.1); Glucose 128 mg/dL (80-110); HEMOLYSIS < 15 (0-50); Lipase 49 U/L (23-300); Potassium 4.1 mmol/L (3.4-5.1); Sodium 132 mmol/L (137-145)
[2021-09-17 11:47] LABS: Troponin I < 0.012 ng/mL (0.01-0.034)
--- NOTE | 2021-09-17 11:53 | DI.CT.S_ITS ---
PROCEDURE: CT ANGIO CHEST PE PROTOCOL INDICATIONS: Chest pain, shortness of breath, tachycardia TECHNIQUE: After the administration of intravenous contrast, 2 mm thick sections acquired from the pulmonary apices to the posterior costophrenic angles. 3-dimensional maximum intensity projection (MIP) coronal and sagittal reformats were then acquired through the thorax. For radiation dose reduction, the following was used: automated exposure control, adjustment of mA and/or kV according to patient size. COMPARISON: [facility], CR, XR CHEST 1V, 09/17/2021, 11:08. FINDINGS: Image quality: Excellent. Pulmonary arteries: Pulmonary arteries are normal in size, and demonstrate no intraluminal filling defects to suggest central pulmonary embolism. Lungs and pleura: Bilateral patchy airspace infiltrates consistent with pneumonia. No pleural effusions or pneumothorax. Central and peripheral airways are patent. Mediastinum: Heart size is normal, without pericardial effusion. Mild coronary artery atherosclerosis. No mediastinal or hilar adenopathy by size criteria. Calcified lymph nodes in mediastinum and ilsa are likely sequelae of remote granulomatous infections. Thoracic aorta is normal in caliber and enhancement. Esophagus is normal in caliber. Small hiatal hernia. Bones and chest wall: No suspicious bony lesions. Ribs and thoracic spine appear intact throughout. Thyroid gland is normal. No axillary or supraclavicular adenopathy. Left shoulder arthroplasty. Severe right shoulder joint degeneration. Abdomen: Visualized upper abdominal solid organs appear normal in the early arterial phase of enhancement. IMPRESSION: 1. No evidence for pulmonary embolism. 2. Bilateral pneumonia. Consider COVID-19 pneumonia. Dictated by: Aden Lees M.D. on 09/17/2021 at 12:13 Approved by: Aden Lees M.D. on 09/17/2021 at 12:19
[2021-09-17 12:20] LABS: NT-proBNP (BNP-Adult 18+) 959 pg/mL (<125)
[2021-09-17 12:29] LABS: Procalcitonin 0.14 ng/mL (<0.5)
[2021-09-17 12:48] VITALS: PULSE 87; RESP 31; O2SAT 97
[2021-09-17 13:00] VITALS: BP 133/63; PULSE 89; RESP 31; O2SAT 96
[2021-09-17 13:11] LABS: COVID19 -Nasal RAPID Negative (Negative)
[2021-09-17 13:30] VITALS: BP 140/61; PULSE 94; RESP 26; O2SAT 97
[2021-09-17 13:50] LABS: RBC Urine None Seen (0-5/HPF)
[2021-09-17 13:51] LABS: Amorphous Sediment Urine 2+; Bacteria Urine None Seen; Culture Indicated Urine Cult Not Indicated; WBC Urine None Seen (0-5/HPF)
== END 2021-09-17 13:51 | disposition home or self-care (01) ==
PROVIDERS: Emergency Provider Emergency Medicine; PCP Family Medicine
DX: J18.9 Pneumonia, unspecified organism (principal); R09.1 Pleurisy; Z87.891 Personal history of nicotine dependence; Z20.822 Contact with and (suspected) exposure to COVID-19
CPT/HCPCS: 36415; 71045; 71275; 80053; 81003; 81015; 82550; 83690; 83880; 84145; 84484; 85025; 85379; 87635; 93005; 99284; C9803

== ENCOUNTER → 2021-10-23 13:09 | Outpatient (CLI) | payer MEDICARE, OTHER, SELFPAY ==
--- NOTE | 2021-10-23 13:10 | DI.RAD.S_ITS ---
PROCEDURE: XR CHEST 2V INDICATIONS: pneumonia follow up TECHNIQUE: 2 views of the chest were acquired. COMPARISON: [facility], CR, XR CHEST 1V, 09/17/2021, 11:08. FINDINGS: Surgical changes and devices: Left shoulder arthroplasty. Lungs and pleura: Lungs are clear. No pleural effusions or pneumothorax. Mediastinum: Mediastinal contours are normal. Heart size is normal. Bones and chest wall: Severe right glenohumeral joint space narrowing and periarticular osteophyte formation, as before. No suspicious bony abnormalities. Soft tissues appear unremarkable. IMPRESSION: 1. No acute process. 2. Severe right glenohumeral joint osteoarthritis. Dictated by: Mala Kruger M.D. on 10/23/2021 at 15:24 Approved by: Mala Kruger M.D. on 10/23/2021 at 15:25
== END ==
PROVIDERS: PCP Family Medicine; Referring Provider Family Medicine; Visit Provider Family Medicine
DX: J18.9 Pneumonia, unspecified organism (principal); M19.011 Primary osteoarthritis, right shoulder
CPT/HCPCS: 71046

== ENCOUNTER → 2021-11-16 15:23 | Outpatient (CLI) | payer MEDICARE, OTHER, SELFPAY ==
--- NOTE | 2021-11-16 15:24 | DI.RAD.S_ITS ---
PROCEDURE: XR CHEST 2V INDICATIONS: recurrent chest tightness TECHNIQUE: 2 views of the chest were acquired. COMPARISON: [facility], , XR CHEST 2V, 10/23/2021, 13:22. FINDINGS: Surgical changes and devices: Patient is status post left shoulder arthroplasty. Lungs and pleura: Lungs are clear. No pleural effusions or pneumothorax. Mediastinum: Mediastinal contours are normal. Heart size is normal. Bones and chest wall: Severe right glenohumeral joint osteoarthritic changes are seen. No suspicious bony abnormalities. Soft tissues appear unremarkable. IMPRESSION: No acute cardiopulmonary pathology. Dictated by: Gerard Domínguez M.D. on 11/16/2021 at 16:33 Approved by: Gerard Domínguez M.D. on 11/16/2021 at 16:36
== END ==
PROVIDERS: PCP Family Medicine; Referring Provider Family Medicine; Visit Provider Family Medicine
DX: U07.1 COVID-19 (principal); J12.82 Pneumonia due to coronavirus disease 2019; R07.89 Other chest pain
CPT/HCPCS: 71046

== ENCOUNTER → 2022-05-30 08:46 | Outpatient (CLI) | payer MEDICARE, OTHER, SELFPAY ==
--- NOTE | 2022-05-30 08:48 | DI.NM.S_ITS ---
PROCEDURE: NM HESHAM PERF SPECT SINGLE STUDY Exercise myocardial perfusion SPECT with gated imaging and ejection fraction RADIOPHARMACEUTICAL: 27.2 mCi Tc-99m sestamibi IV at peak exercise. INDICATIONS: Stress Test TECHNIQUE: Radiopharmaceutical was injected at peak stress test. SPECT images were obtained, with perfusion images in short axis, horizontal long axis, and vertical long axis views. Gated images were reviewed using [employer] software. COMPARISON: None. CARDIAC STRESS: A standard Hoang treadmill exercise tolerance test was performed by the patient under the supervision of an attending staff. The patient exercised for 3 minutes and 36 seconds; 4.6 METS; functional aerobic impairment (CHAGO) is +16% on a sedentary scale. Hemodynamic data: There is normal blood pressure and heart response to exercise. Patient achieved 97% of maximum predicted heart rate. Symptoms: None documented during exercise. EKG: No diagnostic changes of ischemia; rare PVCs. FINDINGS: Raw data: There is good labeling of myocardium by radiotracer. No significant motion artifacts. Bfld-vq-flzdc ratio is 0.33 (normal is less than 0.38 for sestamibi tracer, and less than 0.50 for thallium tracer). Left ventricular function: Gated images demonstrate normal left ventricle wall thickening. No segmental wall motion abnormalities. Left ventricle end diastolic volume is 57 mL. Left ventricle stress ejection fraction is >75%; normal values are above 45%. Myocardial perfusion: There is normal distribution of activity in the left and right ventricular myocardium, without focal perfusion defects. IMPRESSION: Low risk study. No evidence of exercise-induced ischemia on ECG or stress only SPECT imaging. Normal blood pressure response to exercise. Reduced exercise capacity. Dictated by: Irina Chamberlain D.O. on 05/30/2022 at 16:57 Approved by: Irina Chamberlain D.O. on 05/30/2022 at 17:03
[2022-05-30 10:09] LABS: COVID19 -Nasal RAPID Negative (Negative)
--- NOTE | 2022-05-30 14:19 | PM.TREADMILL ---
Cardiac Stress Test Report Referral & Results Date Patient Seen: 05/30/22 Requesting provider: Kristal Coon Indication: Dyspnea Rest ECG: Unremarkable Procedure Note: Today following both written and verbal informed consent the patient was exercised according to a standard Hoang protocol patient went for a total of 3 minutes 36 seconds of stage I, Achieving a maximum heart rate of 142 maximum systolic blood pressure of 184. This is approximately 4.6 METS. Exercise was terminated at this point because of targets were met. Patient was also given Cardiolite through a previously started Hep-Lock IV by the diagnostic imaging staff approximately 1 minute prior to the cessation of exercise. There were no ST-T segment changes Rare PVCs at rest not during exercise or in recovery Normal heart rate and blood pressure response to exercise Function aerobic impairment rates about 0-5% on the sedentary scale Impression: No evidence of ischemia based on usual ECG criteria. Average exercise capacity Please see perfusion imaging report as well. Of note patient did not appear to become abnormally dyspneic with any activity at any point. Please note: Actual ECG tracings can be found in the PACS system.
== END ==
PROVIDERS: Internal Medicine Cardiovascular Disease; PCP Family Medicine; Referring Provider Family Medicine; Visit Provider Family Medicine
DX: R07.89 Other chest pain (principal); R06.09 Other forms of dyspnea; Z20.822 Contact with and (suspected) exposure to COVID-19
CPT/HCPCS: 78451; 87635; 93016; 93017; 93018; A9502

== ENCOUNTER → 2022-12-02 09:17 | Outpatient (CLI) | payer MEDICARE, OTHER, SELFPAY ==
--- NOTE | 2022-12-02 10:00 | DI.MRI.S_ITS ---
PROCEDURE: MR SHOULDER RT WO CON INDICATIONS: right shoulder pain TECHNIQUE: Noncontrast oblique coronal T2 fast spin echo with fat saturation, oblique sagittal T1 spin echo and T2 fast spin echo with fat saturation, axial T1 spin echo and T2 fast spin echo with fat saturation through the shoulder. COMPARISON: None. FINDINGS: Image quality: Excellent. Rotator cuff: Diffuse high-grade intrasubstance tearing of the supraspinatus tendon at the humeral insertion site. Low-grade partial-thickness articular surface and intrasubstance tearing of the anterior and mid infraspinatus tendon at the humeral insertion site. Teres minor is intact. Full-thickness tearing of the mid subscapularis tendon at the humeral insertion site. Atrophy of the supraspinatus, infraspinatus, and subscapularis tendons. Bones and bursae: No bone marrow contusions or fractures. There is severe chronic remodeling of the humeral head and glenoid. Severe periarticular osteophyte formation at the glenohumeral joint. There is moderate subchondral degenerative marrow edema and microcyst formation within the glenoid and humeral head. Moderate acromioclavicular joint degeneration. The acromion demonstrates conventional anatomy, without an os acromiale. No pathologic subacromial-subdeltoid or subcoracoid bursal fluid is present. Diffuse severe degenerative glenoid labral tearing is present. The long head of the biceps tendon demonstrates normal location and morphology. The rotator interval appears normal, without fibrosis. The coracohumeral ligament is normal in thickness. IMPRESSION: 1. Acromioclavicular and glenohumeral joint osteoarthritis with associated glenohumeral remodeling 2. Diffuse glenoid labral tearing. 3. High-grade tearing of the supraspinatus tendon. Full-thickness tearing of the mid subscapularis tendon. Rotator cuff atrophy as above. Dictated by: Mala Kruger M.D. on 12/02/2022 at 11:13 Approved by: Mala Kruger M.D. on 12/02/2022 at 11:16
== END ==
PROVIDERS: PCP Family Medicine; Referring Provider Family Medicine; Visit Provider Family Medicine
DX: M75.111 Incomplete rotator cuff tear or rupture of right shoulder, not specified as traumatic (principal); M05.79 Rheumatoid arthritis with rheumatoid factor of multiple sites without organ or systems involvement; M19.011 Primary osteoarthritis, right shoulder; M25.511 Pain in right shoulder
CPT/HCPCS: 73221

== ENCOUNTER → 2023-03-20 14:27 | Outpatient (CLI) | payer MEDICARE, OTHER, SELFPAY | PROVIDERS: PCP Family Medicine; Visit Provider Nurse Practitioner Family | DX: R30.0 Dysuria (principal) | CPT/HCPCS: 87086; 87210 ==

== ENCOUNTER → 2023-08-22 09:14 | Outpatient (CLI) | payer MEDICARE, OTHER, SELFPAY ==
[2023-08-22 10:15] LABS: Add Manual Diff / Slide Review NO; Basophils Absolute Auto 0 /uL (0-100); Eosinophils Absolute Auto 100 /uL (0-450); Hematocrit 38.1 % (36-46); Hemoglobin 12.8 g/dL (12.0-16.0); Lymphocytes Absolute Auto 1300 /uL (1100-4500); Lymphocytes Percent Auto 26.5 % (25-40); Mean Corpuscular HGB Conc 33.5 % (30-36); Mean Corpuscular Hemoglobin 32.4 PG (26-34); Mean Corpuscular Volume 96.7 fL (80-100); Monocytes Absolute Auto 600 /uL (0-900); Monocytes Percent Auto 11.7 % (3-14); Neutrophils Absolute Auto 2900 /uL (1500-7000); Neutrophils Percent Auto 58.8 % (50-75); Platelet Count 234 X10^3/uL (150-400); Red Blood Cell Count 3.94 X10^6/uL (4.0-5.2); Red Cell Distribution Width 13.4 % (11.6-14.8); White Blood Cell Count 4.9 X10^3/uL (4.5-11.0)
[2023-08-22 10:30] LABS: Prothrombin Time 11.7 SECONDS (9.4-12.5)
[2023-08-22 10:31] LABS: D Dimer 2144 ng/ml (<500)
[2023-08-22 10:37] LABS: HEMOLYSIS < 15 (0-50); Iron 80 ug/dL (37-170)
[2023-08-22 10:39] LABS: Alanine Aminotransferase 40 IU/L (<35); Albumin 4.2 g/dL (3.5-5.0); Albumin Globulin Ratio 1.3 (1.0-2.8); Alkaline Phosphatase 103 U/L (38-126); Aspartate Aminotransferase 40 IU/L (14-36); BUN Creatinine Ratio 22.4 (6-22); Bilirubin Total 0.9 mg/dL (0.2-1.3); Blood Urea Nitrogen 19 mg/dL (7-17); Calcium 9.4 mg/dL (8.4-10.2); Carbon Dioxide 26 mmol/L (22-32); Chloride 108 mmol/L (98-107); Cholesterol 173 mg/dL (140-199); Estimated Glomerular Filt Rate > 60 mL/min (>60); Globulin 3.2 g/dL (1.7-4.1); Glucose 105 mg/dL (80-110); HDL Cholesterol 71 mg/dL (40-60); HEMOLYSIS < 15 (0-50); LDL Cholesterol Calculated 89 mg/dL (<100); Sodium 139 mmol/L (137-145); Total Protein 7.4 g/dL (6.3-8.2); Triglycerides 66 mg/dL (35-150)
[2023-08-22 10:46] LABS: High Sensitivity CRP - Cardiac 4.9 mg/L (1.0-3.0)
[2023-08-22 10:49] LABS: NT-proBNP (BNP-Adult 18+) 2190 pg/mL (<450); Percent Iron Saturation 21 % (15-50); Total Iron Binding Capacity 377 ug/dL (265-497); Transferrin 295 mg/dL (206-381)
[2023-08-22 11:09] LABS: TSH w/ Reflex to FT4 0.82 uIU/mL (0.47-4.68)
[2023-08-22 11:11] LABS: Vitamin D 25 Hydroxy (D3) 43.4 ng/mL (30.0-100.0)
[2023-08-22 11:14] LABS: Ferritin 29 ng/mL (11-264)
[2023-08-23 05:39] LABS: Homocysteine 13.4 umol/L (0.0-19.2)
[2023-09-02 06:59] LABS: Magnesium, RBC 5.7 mg/dL (3.7-7.0)
== END ==
PROVIDERS: PCP Family Medicine; Referring Provider Family Medicine; Visit Provider Family Medicine
DX: E78.5 Hyperlipidemia, unspecified (principal); D51.0 Vitamin B12 deficiency anemia due to intrinsic factor deficiency; E55.9 Vitamin D deficiency, unspecified; E03.9 Hypothyroidism, unspecified; E53.8 Deficiency of other specified B group vitamins; M05.79 Rheumatoid arthritis with rheumatoid factor of multiple sites without organ or systems involvement; I48.91 Unspecified atrial fibrillation
CPT/HCPCS: 36415; 80053; 80061; 82306; 82728; 83090; 83540; 83550; 83735; 83880; 84443; 85025; 85379; 85610; 86140

== ENCOUNTER → 2023-09-23 07:59 | Outpatient (CLI) | payer MEDICARE, OTHER, SELFPAY ==
--- NOTE | 2023-09-23 08:00 | DI.ECHO.S_ITS ---
[facility] +---------+ [facility] +---------+ : : [address] : : : : [id number] : : : : Phone: [phone]+ Echocardiogram Report + + :Name: KRISHNA TERESA Study Date: 09/23/2023 Height: 64 in : :[facility] ReadingLocation: Weight: 148 lb : : Gender: Female BSA: 1.7 m2 : :: 1950 Age: 73 yrs BP: 115/83 mmHg: :Reason For Study: NEW ATRIAL FIBRILLATION W RVR : :Ordering Physician: Basim SMALLSformed By: Thelma Chapa : :Referring: TYSON SMALLS : + + Interpretation Summary 1) Normal left ventricular thickness, size, wall motion, and systolic function (EF 55-60%). 2) Normal right ventricular size and function. 3) There is mild to moderate mitral regurgitation. 4) There is mild to moderate tricuspid regurgitation. 5) No prior Echo available for comparison. Procedure: A two-dimensional transthoracic echocardiogram with color flow and Doppler was performed. The study quality was technically adequate. There is no prior echocardiogram noted for this patient. The patient was in atrial fibrillation with heart rates between 80-111 bpm during the exam. Left Ventricle: The left ventricle is normal in size and wall thickness. The ejection fraction is estimated to be 55-60%. Left ventricular systolic function appears normal without focal wall motion abnormalities. Diastolic function could not be accurately assessed due to atrial fibrillation. Right Ventricle: The right ventricle is normal in size and function. Atria: The left atrium is moderately dilated. The right atrium is mild to moderately dilated. There is no Doppler evidence for an interatrial shunt. Mitral Valve: The mitral valve leaflets appear to open well. There is mild to moderate mitral regurgitation. Aortic Valve: The aortic valve is trileaflet. The aortic valve opens well. There is no aortic valve stenosis. No aortic regurgitation is present. Tricuspid Valve: The tricuspid valve is normal in structure and function. There is mild to moderate tricuspid regurgitation. The right ventricular systolic pressure is estimated to be at least 38 mmHg based on an estimated right atrial pressure of 8 mm Hg. Pulmonic Valve: The pulmonic valve leaflets are thin and pliable; valve motion is normal. There is trace pulmonic regurgitation. Great Vessels: The aortic root is normal size. The dimensions of the ascending aorta are normal. The IVC is dilated (diameter is greater than 2.1 cm) yet it collapses greater than 50% with a sniff. This suggests a right atrial pressure of 8 mm Hg. Pericardium/ Pleura There is no pericardial effusion. There is no pleural effusion. MMode/2D Measurements & Calculations LVIDd: 4.3 cm LVOT diam: 2.0 cm LVIDs: 3.3 cm Ao root diam: 2.8 cm FS: 22.4 % asc Aorta Diam: 3.3 cm IVSd: 0.88 cm Ao Arch Diam (Prox Trans): 3.0 cm LVPWd: 0.80 cm LV almaguer. diameter/BSA (cm/m^2): 2.5 LV sys. diameter/BSA (cm/m^2): 1.9 LA A2 area: 23.2 cm2 RA long axis: 5.5 cm LA A4 area: 26.1 cm2 RA area: 20.1 cm2 LA length (vol): 6.4 cm RA vol: 61.8 ml LA vol: 80.7 ml RA : 35.9 ml/m2 LA vol index: 46.9 ml/m2 IVC diam: 2.3 cm RVD1 (basal): 3.3 cm RVD2 (mid): 2.5 cm TAPSE: 1.6 cm Doppler Measurements & Calculations Ao V2 max: 103.3 cm/sec LVOT Max Mauri: 72.1 cm/sec Ao V2 mean: 69.0 cm/sec LV V1 max P.1 mmHg Ao max P.3 mmHg LV V1 VTI: 12.8 cm Ao mean P.1 mmHg DANA(I,D): 2.4 cm2 Ao V2 VTI: 17.7 cm DANA(V,D): 2.3 cm2 sev ratio: 0.72 DANA indexed to BSA (cm^2/m^2): 1.4 MV E max mauri: 117.7 cm/sec TR max mauri: 271.2 cm/sec MV A max mauri: 1.6 cm/sec TR max P.4 mmHg MV E/A: 75.4 PA V2 max: 63.8 cm/sec Med Peak E' Mauri: 8.1 cm/sec PA V2 mean: 44.7 cm/sec E/E' med: 14.5 PA mean P.88 mmHg Lat Peak E' Mauri: 8.7 cm/sec PA pr(Accel): 36.2 mmHg E/E' lat: 13.5 E/e' average: 14.0 MV dec time: 0.15 sec SV(LVOT): 41.9 ml Reading Physician:12:27 PM
== END ==
PROVIDERS: PCP Family Medicine; Referring Provider Family Medicine; Visit Provider Family Medicine
DX: I48.91 Unspecified atrial fibrillation (principal); I08.1 Rheumatic disorders of both mitral and tricuspid valves
CPT/HCPCS: 93306

== ENCOUNTER → 2023-10-17 10:22 | Outpatient (CLI) | payer MEDICARE, OTHER, SELFPAY ==
[2023-10-17 10:56] LABS: Add Manual Diff / Slide Review NO; Basophils Absolute Auto 0 /uL (0-100); Eosinophils Absolute Auto 100 /uL (0-450); Eosinophils Percent Auto 2.2 % (2-4); Hematocrit 40.9 % (36-46); Hemoglobin 13.6 g/dL (12.0-16.0); Lymphocytes Absolute Auto 1300 /uL (1100-4500); Lymphocytes Percent Auto 29.4 % (25-40); Mean Corpuscular HGB Conc 33.3 % (30-36); Mean Corpuscular Hemoglobin 32.1 PG (26-34); Mean Corpuscular Volume 96.5 fL (80-100); Monocytes Absolute Auto 500 /uL (0-900); Monocytes Percent Auto 10.1 % (3-14); Neutrophils Absolute Auto 2600 /uL (1500-7000); Neutrophils Percent Auto 57.3 % (50-75); Platelet Count 236 X10^3/uL (150-400); Red Blood Cell Count 4.24 X10^6/uL (4.0-5.2); Red Cell Distribution Width 13.4 % (11.6-14.8); White Blood Cell Count 4.6 X10^3/uL (4.5-11.0)
[2023-10-17 11:18] LABS: Blood Urea Nitrogen 24 mg/dL (7-17); Calcium 9.6 mg/dL (8.4-10.2); Carbon Dioxide 24 mmol/L (22-32); Chloride 108 mmol/L (98-107); Estimated Glomerular Filt Rate 53 mL/min (>60); Glucose 122 mg/dL (80-110); HEMOLYSIS < 15 (0-50); Potassium 4.5 mmol/L (3.4-5.1); Sodium 139 mmol/L (137-145)
== END ==
PROVIDERS: PCP Family Medicine; Referring Provider Internal Medicine; Visit Provider Internal Medicine
DX: I48.91 Unspecified atrial fibrillation (principal)
CPT/HCPCS: 36415; 80048; 85025

== ENCOUNTER → 2023-11-18 13:15 | Outpatient (CLI) | payer MEDICARE, OTHER, SELFPAY ==
[2023-11-18 14:06] LABS: Add Manual Diff / Slide Review NO; Basophils Absolute Auto 100 /uL (0-100); Basophils Percent Auto 0.9 % (0-2); Eosinophils Absolute Auto 100 /uL (0-450); Eosinophils Percent Auto 1.6 % (2-4); Hematocrit 40.6 % (36-46); Hemoglobin 13.5 g/dL (12.0-16.0); Lymphocytes Absolute Auto 2100 /uL (1100-4500); Lymphocytes Percent Auto 35.7 % (25-40); Mean Corpuscular HGB Conc 33.4 % (30-36); Mean Corpuscular Hemoglobin 31.9 PG (26-34); Mean Corpuscular Volume 95.7 fL (80-100); Monocytes Absolute Auto 600 /uL (0-900); Monocytes Percent Auto 9.5 % (3-14); Neutrophils Absolute Auto 3100 /uL (1500-7000); Neutrophils Percent Auto 52.3 % (50-75); Platelet Count 218 X10^3/uL (150-400); Red Blood Cell Count 4.24 X10^6/uL (4.0-5.2); Red Cell Distribution Width 14.2 % (11.6-14.8); White Blood Cell Count 5.9 X10^3/uL (4.5-11.0)
[2023-11-18 14:31] LABS: Blood Urea Nitrogen 26 mg/dL (7-17); Calcium 8.6 mg/dL (8.4-10.2); Carbon Dioxide 26 mmol/L (22-32); Chloride 109 mmol/L (98-107); Estimated Glomerular Filt Rate 59 mL/min (>60); Glucose 101 mg/dL (80-110); HEMOLYSIS < 15 (0-50); Potassium 4.8 mmol/L (3.4-5.1); Sodium 140 mmol/L (137-145)
== END ==
PROVIDERS: PCP Family Medicine; Referring Provider Internal Medicine; Visit Provider Internal Medicine
DX: I48.19 Other persistent atrial fibrillation (principal)
CPT/HCPCS: 36415; 80048; 85025

== ENCOUNTER 2024-01-19 09:17 | Emergency (ER) | payer MEDICARE, OTHER, SELFPAY ==
[2024-01-19] VITALS (8 sets, daily range): BP systolic 140–167; BP diastolic 61–70; PULSE 53–61; RESP 16–25; TEMP 37; O2SAT 94–98; BMI 24.3
--- NOTE | 2024-01-19 09:37 | DI.CT.S_ITS ---
PROCEDURE: CT CERVICAL SPINE WO CON INDICATIONS: fall 01/16, midline tenderness TECHNIQUE: Noncontrast 3 mm thick sections acquired from the skull base to the T4 level. Sagittal and coronal reformats were then constructed. For radiation dose reduction, the following was used: automated exposure control, adjustment of mA and/or kV according to patient size. COMPARISON: None. FINDINGS: Image quality: Excellent. Bones: No fractures or dislocations. Degenerative endplate changes, loss of disc height and bilateral uncovertebral hypertrophic changes are noted throughout cervical spine most notably at C6-7 level causing [id number] central canal stenosis and bilateral neural foraminal narrowing. Visualized superior ribs are intact. Soft tissues: Prevertebral soft tissues are normal in thickness. No paravertebral hematomas. No apical pneumothoraces. IMPRESSION: No displaced fracture or traumatic subluxation. Degenerative disc disease throughout cervical spine as above. Dictated by: Gerard Domínguez M.D. on 01/19/2024 at 10:31 Approved by: Gerard Domínguez M.D. on 01/19/2024 at 10:32
--- NOTE | 2024-01-19 09:38 | DI.CT.S_ITS ---
PROCEDURE: CT HEAD/BRAIN WO CON INDICATIONS: fall 01/16. on eliquis. neuro changes noted TECHNIQUE: Noncontrast 4.5 mm thick angled axial sections acquired from the foramen magnum to the vertex, with coronal and sagittal reformats. For radiation dose reduction, the following was used: automated exposure control, adjustment of mA and/or kV according to patient size. COMPARISON: None. FINDINGS: Image quality: Diagnostic. CSF spaces: Basal cisterns are patent. No extra-axial fluid collections. The ventricles are symmetric in size and shape. Brain: No intracranial bleeds or masses. There is cerebral volume loss for age, with resultant ventricular and sulcal prominence. There are periventricular and deep white matter chronic small vessel ischemic changes. There is intracranial internal carotid artery atherosclerosis. Skull and face: Calvarium and visualized facial bones appear intact, without suspicious lesions. Sinuses: Visualized sinuses and mastoids are clear. IMPRESSION: 1. No acute intracranial pathology. 2. Age related volume loss and extensive white matter chronic ischemic changes. Dictated by: Gerard Domínguez M.D. on 01/19/2024 at 10:30 Approved by: Gerard Domínguez M.D. on 01/19/2024 at 10:31
--- NOTE | 2024-01-19 09:38 | ED.GENADULT ---
HPI - General Adult General Chief complaint: Trauma Stated complaint: fell, MARS, poss speech problems, weak Time Seen by Provider: 01/19/24 09:25 Source: patient and family Mode of arrival: Ambulatory History of Present Illness HPI narrative: 73-year-old woman with a history of atrial fibrillation anticoagulated on apixaban, presents after falling in the bathroom hitting the right side of her head on the toilet without loss of consciousness on January 16. They were visiting friends in [place] at the time, have flown home and in the last 24 hours her sons are noticing that she seems a bit slow, she complains of word-finding difficulties. No weakness or ataxia, she is complaining of headache. They are concerned she may have small amount of bleeding from the fall 48 hours ago and come in for further evaluation. No palpitations, dyspnea, recent fevers, cough, nausea, vomiting or diarrhea. Related Data Home Medications Medication Instructions Recorded Confirmed cholecalciferol (vitamin D3) 25 3,000 unit PO DAILY PRN 01/05/19 08/27/23 mcg/drop (1,000 unit/drop) oral drops ibuprofen 200 mg tablet 400 mg PO QAM 03/01/19 08/27/23 Previous Rx's Medication Instructions Recorded cyanocobalamin (vitamin B-12) 1,000 mcg IM QMONTH #1 mL 02/18/23 1,000 mcg/mL injection solution estradiol 0.01% (0.1 mg/gram) 1 g vaginal 2XW #42.5 grams 04/30/23 vaginal cream apixaban 5 mg tablet (Eliquis) 5 mg PO BID anticoagulation #60 08/22/23 tabs metoprolol tartrate 25 mg tablet 50 mg (2 x 25 mg) PO BID HR>100 10/22/23 resting, >120 walking #180 tabs Allergies Allergy/AdvReac Type Severity Reaction Status Date / Time No Known Drug Allergies Allergy Verified 08/27/23 07:54 Review of Systems Review of Systems Narrative: Pertinent positive and negative findings as per HPI Patient History Medical History Pneumonia due to COVID-19 virus Pernicious anemia NSAID long-term use Hypothyroidism (10/22/10) Rheumatoid arthritis (Unknown) Rheumatoid arthritis involving multiple sites with positive rheumatoid factor (~195) Osteopenia (05/04/08) Surgical History History of left hip replacement (~2019) History of right hip replacement (~2011) S/P shoulder replacement (1994) Status post tubal ligation (1984) Family History Brother Age: 78 Coronary artery disease Obese Mother CVA (cerebral vascular accident) Father No problems noted. Social History household members: none Smoking Status: Former smoker Tobacco: How many years used: 4 second hand exposure: No alcohol intake: current substance use type: does not use Smoking Status: Former smoker tobacco type: cigarettes alcohol intake frequency: holidays/special occasions only Substance Use Type: does not use Exam Initial Vital Signs Initial Vital Signs: Vital Signs Temperature 98.6 F 01/19/24 09:27 Pulse Rate 61 01/19/24 09:27 Respiratory Rate 16 01/19/24 09:27 Blood Pressure 150/61 H 01/19/24 09:27 Pulse Oximetry 98 01/19/24 09:27 Oxygen Delivery Method Room Air 01/19/24 09:27 General: Healthy appearing, in no acute distress. Able to give a complete and coherent history. Well-nourished well-developed HEENT: Moist mucous membranes, normal sclera with reactive pupils, contusion over the right superior helix from her fall. Neck: Point tenderness midline C2, C3. Respiratory: Lungs are clear to auscultation, no wheezing no rales no rhonchi. Full and symmetrical air movement, no pain with deep breathing Cardiac: Regular rate and rhythm no murmurs no bruits Abdomen: Soft, nontender, good bowel tones, no flank pain Skin: Contusion to the right upper arm. Right flank. Neurologic: Grossly neurologically intact with no obvious asymmetries or abnormalities. Speech is somewhat slowed however NIH score is 0 Extremities: No abrasions or contusions to the lower extremities. She does have joint changes consistent with rheumatoid arthritis Psych: Cooperative, appropriate insight and affect Course Orders Ordered: ED Orders 01/19/24 09:30 Complete Blood Count AUTO DIFF Stat 01/19/24 09:37 CT cervical spine wo con Stat Comprehensive Metabolic Panel Stat 01/19/24 09:38 CT head/brain wo con Stat Vital Signs Vital signs: Vital Signs - 8 hr 01/19/24 09:27 01/19/24 09:34 Temperature 98.6 F Temperature [right arm] 98.6 F Pulse Rate 61 Pulse Rate [right arm] 61 Respiratory Rate 16 Respiratory Rate [right arm] 17 Blood Pressure 150/61 H Blood Pressure [right arm] 150/66 H Pulse Oximetry 98 Pulse Oximetry [right arm] 98 Oxygen Delivery Method Room Air Oxygen Delivery Method [right arm] Room Air Medical Decision Making Lab Data 01/19/24 09:30 01/19/24 09:37 Labs: Lab Results 01/19/24 01/19/24 Range/Units 09:30 09:37 WBC 7.5 (4.5-11.0) X10^3/uL RBC 3.70 L (4.0-5.2) X10^6/uL Hgb 12.4 (12.0-16.0) g/dL Hct 36.3 (36-46) % MCV 98.1 (80-100) fL MCH 33.4 (26-34) PG MCHC 34.0 (30-36) % RDW 14.7 (11.6-14.8) % Plt Count 178 (150-400) X10^3/uL Neut % (Auto) 73.9 (50-75) % Lymph % (Auto) 17.2 L (25-40) % [place] % (Auto) 8.5 (3-14) % Eos % (Auto) 0.1 L (2-4) % Baso % (Auto) 0.3 (0-2) % Neut # (Auto) 5500 (6530-5621) /uL Lymph # (Auto) 1300 (7087-9769) /uL [place] # (Auto) 600 (0-900) /uL Eos # (Auto) 0 (0-450) /uL Baso # (Auto) 0 (0-100) /uL Sodium 138 (137-145) mmol/L Potassium 3.9 (3.4-5.1) mmol/L Chloride 108 H (98-107) mmol/L Carbon Dioxide 21 L (22-32) mmol/L BUN 27 H (7-17) mg/dL Creatinine 1.21 H (0.52-1.04) mg/dL Estimated GFR 47 L (>60) mL/min BUN/Creatinine Ratio 22.3 H (6-22) Glucose 108 (80-110) mg/dL Calcium 8.8 (8.4-10.2) mg/dL Total Bilirubin 1.0 (0.2-1.3) mg/dL AST 89 H (14-36) IU/L ALT 73 H (<35) IU/L Alkaline Phosphatase 81 (38-126) U/L Total Protein 7.6 (6.3-8.2) g/dL Albumin 4.3 (3.5-5.0) g/dL Globulin 3.3 (1.7-4.1) g/dL Albumin/Globulin Ratio 1.3 (1.0-2.8) MDM Narrative Medical decision making narrative: CC: Fall 48 hours ago, hit head no loss of consciousness, anticoagulated Complicating co-morbidities: Chronic AFib, anticoagulated Data collected from: patient, 2 sons Medical records reviewed: Primary care note from 11/20/2023 is reviewed Differential considered: Bruises/contusions, headache, concussion, postconcussion syndrome, acute cervical spine fracture, intracranial hemorrhage Exam documented above, pertinent findings include: 73-year-old woman who overall does seem a bit slowed but is otherwise quite appropriate. NIH score is 0. Exam is benign aside from the contusions mentioned in physical exam section above Lab Test results independently reviewed as above. Pertinent findings: CBC is unremarkable Chemistries show a slight bump to creatinine. Slight increased to AST and ALT Imaging studies independently reviewed: CT cervical spine does not show any acute findings she does have chronic arthritis changes CT of the head does not show any intracranial bleeding. Discussion: 73-year-old woman on Eliquis for atrial fibrillation. Fall 48 hours ago. Minor word-finding difficulties and behavioral changes. She did fly back from [place] in the interval. At this point exam is entirely benign, NIH score is 0, CT scan of the brain 48 hours after event is unremarkable as is CT of the cervical spine. Labs are reassuring. We did discuss the possibility of a small stroke that was missed with CT scan however patient is appropriately treated for stroke prophylaxis at this point. I suspect that her symptoms are far more likely related to postconcussion syndrome. This is reviewed in detail with the patient and her 2 sons. Questions are answered. At this point I do not believe additional imaging or hospitalization is required. She will be discharged home and if the sons notice worsening symptoms I have encouraged them to return. If they were to return my next step would be an MRI of the brain looking for a posterior cerebellar stroke. Discharge Plan Departure Patient Disposition: Home Clinical Impression: Anticoagulant prescribed Concussion Qualifiers: Encounter type: initial encounter Loss of consciousness presence/duration: without LOC Qualified Code(s): S06.0X0A - Concussion without loss of consciousness, initial encounter Fall Qualifiers: Encounter type: initial encounter Qualified Code(s): W19.XXXA - Unspecified fall, initial encounter Instructions: DI for Postconcussion Syndrome Activity Restrictions/Additional Instructions: Thank you for coming in today Fortunately, I am not seeing any signs of bleeding in your head from hitting your head nor any signs of stroke that might be causing your balance issues. Your blood work is quite reassuring I suspect that your symptoms are related to postconcussion syndrome from hitting your head 48 hours ago. Please review the postconcussion information I printed out for you. Treatment for this is cognitive rest. A simply means minimal screen time, reading and plenty of sleep. If you find that symptoms are worsening or have you new issues please feel free to return to the ER Prescriptions: No Action metoprolol tartrate 25 mg tablet 50 mg PO BID Qty: 180 0RF Rx Instructions: Start with 25mg twice a day. If HR not <100 at rest, increase by 25mg to max 100 twice a day. cyanocobalamin (vitamin B-12) 1,000 mcg/mL solution 1,000 mcg IM QMONTH Qty: 1 11RF cholecalciferol (vitamin D3) 1,000 unit/drop drops 3,000 unit PO DAILY PRN ibuprofen 200 mg tablet 400 mg PO QAM estradiol 0.01 % (0.1 mg/gram) cream 1 g vaginal 2XW Qty: 42.5 0RF Eliquis 5 mg tablet 5 mg PO BID Qty: 60 2RF Referrals: Kristal Coon DO [Primary Care Provider] - Stand Alone Forms: Patient Portal/API
--- NOTE | 2024-01-19 09:40 | PC.NURSE ---
Pt visiting family in [place] and slipped, fell and hit her head in the bathroom. Pt take eliquis. Denies LOC or cervical spine tenderness. Pt ambulated into dept with steady gait. Pt a&ox4. Pt reports that she flew back to [place] on 01/17 and began feeling weak, shakey and had some slurred speech on the plane. Reports that she has been having some balance issues since she arrived home yesterday and has been getting worse since then. Son at bedside and confirms timeline.
[2024-01-19 09:45] LABS: Add Manual Diff / Slide Review NO; Basophils Absolute Auto 0 /uL (0-100); Basophils Percent Auto 0.3 % (0-2); Eosinophils Absolute Auto 0 /uL (0-450); Eosinophils Percent Auto 0.1 % (2-4); Hematocrit 36.3 % (36-46); Hemoglobin 12.4 g/dL (12.0-16.0); Lymphocytes Absolute Auto 1300 /uL (1100-4500); Lymphocytes Percent Auto 17.2 % (25-40); Mean Corpuscular Hemoglobin 33.4 PG (26-34); Mean Corpuscular Volume 98.1 fL (80-100); Monocytes Absolute Auto 600 /uL (0-900); Monocytes Percent Auto 8.5 % (3-14); Neutrophils Absolute Auto 5500 /uL (1500-7000); Neutrophils Percent Auto 73.9 % (50-75); Platelet Count 178 X10^3/uL (150-400); Red Cell Distribution Width 14.7 % (11.6-14.8); White Blood Cell Count 7.5 X10^3/uL (4.5-11.0)
[2024-01-19 09:50] LABS: Alanine Aminotransferase 73 IU/L (<35); Albumin 4.3 g/dL (3.5-5.0); Albumin Globulin Ratio 1.3 (1.0-2.8); Alkaline Phosphatase 81 U/L (38-126); Aspartate Aminotransferase 89 IU/L (14-36); BUN Creatinine Ratio 22.3 (6-22); Blood Urea Nitrogen 27 mg/dL (7-17); Calcium 8.8 mg/dL (8.4-10.2); Carbon Dioxide 21 mmol/L (22-32); Chloride 108 mmol/L (98-107); Estimated Glomerular Filt Rate 47 mL/min (>60); Globulin 3.3 g/dL (1.7-4.1); Glucose 108 mg/dL (80-110); HEMOLYSIS < 15 (0-50); Potassium 3.9 mmol/L (3.4-5.1); Sodium 138 mmol/L (137-145); Total Protein 7.6 g/dL (6.3-8.2)
== END 2024-01-19 11:52 | disposition home or self-care (01) ==
PROVIDERS: Emergency Provider Emergency Medicine; PCP Family Medicine
DX: S06.0X0A Concussion without loss of consciousness, initial encounter (principal); W18.30XA Fall on same level, unspecified, initial encounter; Z79.01 Long term (current) use of anticoagulants
CPT/HCPCS: 36415; 70450; 72125; 80053; 85025; 99284

== ENCOUNTER → 2024-02-27 08:35 | Outpatient (CLI) | payer MEDICARE, OTHER, SELFPAY ==
[2024-02-27 10:05] LABS: BUN Creatinine Ratio 8.7 (6-22); Blood Urea Nitrogen 16 mg/dL (7-17); Estimated Glomerular Filt Rate 28 mL/min (>60)
[2024-02-27 10:06] LABS: Calcium 9.1 mg/dL (8.4-10.2); Carbon Dioxide 25 mmol/L (22-32); Chloride 105 mmol/L (98-107); Glucose 99 mg/dL (80-110); HEMOLYSIS < 15 (0-50); Potassium 4.3 mmol/L (3.4-5.1); Sodium 137 mmol/L (137-145)
== END ==
PROVIDERS: PCP Family Medicine; Referring Provider Internal Medicine; Visit Provider Internal Medicine
DX: I10 Essential (primary) hypertension (principal)
CPT/HCPCS: 36415; 80048

== ENCOUNTER → 2024-03-04 14:26 | Outpatient (CLI) | payer MEDICARE, OTHER, SELFPAY ==
[2024-03-04 15:54] LABS: BUN Creatinine Ratio 17.3 (6-22); Blood Urea Nitrogen 22 mg/dL (7-17); Calcium 8.9 mg/dL (8.4-10.2); Carbon Dioxide 24 mmol/L (22-32); Chloride 104 mmol/L (98-107); Estimated Glomerular Filt Rate 44 mL/min (>60); Glucose 98 mg/dL (80-110); HEMOLYSIS < 15 (0-50); Potassium 4.4 mmol/L (3.4-5.1); Sodium 133 mmol/L (137-145)
== END ==
PROVIDERS: PCP Family Medicine; Referring Provider Internal Medicine; Visit Provider Internal Medicine
DX: I10 Essential (primary) hypertension (principal)
CPT/HCPCS: 36415; 80048

== ENCOUNTER → 2024-04-30 09:59 | Outpatient (CLI) | payer MEDICARE, OTHER, SELFPAY ==
[2024-04-30 10:41] LABS: Add Manual Diff / Slide Review NO; Basophils Absolute Auto 0 /uL (0-100); Eosinophils Absolute Auto 100 /uL (0-450); Eosinophils Percent Auto 1.7 % (2-4); Hematocrit 39.4 % (36-46); Hemoglobin 13.1 g/dL (12.0-16.0); Lymphocytes Absolute Auto 1100 /uL (1100-4500); Lymphocytes Percent Auto 25.2 % (25-40); Mean Corpuscular HGB Conc 33.3 % (30-36); Mean Corpuscular Hemoglobin 33.5 PG (26-34); Mean Corpuscular Volume 100.4 fL (80-100); Monocytes Absolute Auto 500 /uL (0-900); Monocytes Percent Auto 11.1 % (3-14); Neutrophils Absolute Auto 2600 /uL (1500-7000); Platelet Count 242 X10^3/uL (150-400); Red Blood Cell Count 3.93 X10^6/uL (4.0-5.2); Red Cell Distribution Width 12.9 % (11.6-14.8); White Blood Cell Count 4.3 X10^3/uL (4.5-11.0)
[2024-04-30 11:33] LABS: Alanine Aminotransferase 34 IU/L (<35); Albumin 4.4 g/dL (3.5-5.0); Albumin Globulin Ratio 1.6 (1.0-2.8); Alkaline Phosphatase 82 U/L (38-126); Aspartate Aminotransferase 34 IU/L (14-36); BUN Creatinine Ratio 14.9 (6-22); Bilirubin Total 0.6 mg/dL (0.2-1.3); Blood Urea Nitrogen 20 mg/dL (7-17); Calcium 9.5 mg/dL (8.4-10.2); Carbon Dioxide 25 mmol/L (22-32); Chloride 106 mmol/L (98-107); Estimated Glomerular Filt Rate 41 mL/min (>60); Globulin 2.8 g/dL (1.7-4.1); Glucose 114 mg/dL (80-110); HEMOLYSIS < 15 (0-50); Potassium 5.1 mmol/L (3.4-5.1); Sodium 139 mmol/L (137-145); Total Protein 7.2 g/dL (6.3-8.2)
[2024-04-30 13:42] LABS: Free T4, Direct Thyroxine 0.83 ng/dL (0.78-2.19)
== END ==
PROVIDERS: PCP Family Medicine; Referring Provider Internal Medicine; Visit Provider Internal Medicine
DX: I48.19 Other persistent atrial fibrillation (principal)
CPT/HCPCS: 36415; 80053; 84439; 84443; 85025

== ENCOUNTER → 2024-06-10 07:06 | Outpatient (CLI) | payer MEDICARE, OTHER, SELFPAY ==
[2024-06-10 07:37] LABS: Hematocrit 38.2 % (36-46); Hemoglobin 12.8 g/dL (12.0-16.0); Mean Corpuscular HGB Conc 33.6 % (30-36); Mean Corpuscular Hemoglobin 33.2 PG (26-34); Mean Corpuscular Volume 98.6 fL (80-100); Platelet Count 238 X10^3/uL (150-400); Red Blood Cell Count 3.87 X10^6/uL (4.0-5.2); White Blood Cell Count 4.1 X10^3/uL (4.5-11.0)
[2024-06-10 08:02] LABS: Alanine Aminotransferase 33 IU/L (<35); Albumin 4.3 g/dL (3.5-5.0); Albumin Globulin Ratio 1.5 (1.0-2.8); Alkaline Phosphatase 75 U/L (38-126); Aspartate Aminotransferase 32 IU/L (14-36); Bilirubin Total 0.6 mg/dL (0.2-1.3); Calcium 9.1 mg/dL (8.4-10.2); Carbon Dioxide 25 mmol/L (22-32); Chloride 106 mmol/L (98-107); Globulin 2.8 g/dL (1.7-4.1); Glucose 104 mg/dL (80-110); HEMOLYSIS < 15 (0-50); Potassium 4.5 mmol/L (3.4-5.1); Sodium 138 mmol/L (137-145); Total Protein 7.1 g/dL (6.3-8.2)
[2024-06-10 08:07] LABS: BUN Creatinine Ratio 19.3 (6-22); Blood Urea Nitrogen 23 mg/dL (7-17); Estimated Glomerular Filt Rate 47 mL/min (>60)
[2024-06-10 08:18] LABS: Free T3, Triiodothyronine Free 3.37 pg/mL (2.77-5.27); Free T4, Direct Thyroxine 0.65 ng/dL (0.78-2.19)
[2024-06-10 08:32] LABS: Thyroid Stimulating Hormone 28.9 uIU/mL (0.47-4.68)
[2024-06-11 07:39] LABS: Thyroid Peroxidase Antibodies 15 IU/mL (0-34)
== END ==
PROVIDERS: PCP Family Medicine; Referring Provider Family Medicine; Visit Provider Family Medicine
DX: E03.2 Hypothyroidism due to medicaments and other exogenous substances (principal); I10 Essential (primary) hypertension
CPT/HCPCS: 36415; 80053; 84439; 84443; 84481; 85027; 86376; 86800

== ENCOUNTER → 2024-08-18 07:26 | Outpatient (CLI) | payer MEDICARE, OTHER, SELFPAY ==
[2024-08-18 08:10] LABS: Blood Urea Nitrogen 29 mg/dL (7-17); Calcium 9.3 mg/dL (8.4-10.2); HEMOLYSIS < 15 (0-50)
[2024-08-18 08:23] LABS: BUN Creatinine Ratio 25.2 (6-22); Carbon Dioxide 25 mmol/L (22-32); Chloride 106 mmol/L (98-107); Estimated Glomerular Filt Rate 49 mL/min (>60); Glucose 91 mg/dL (80-110); Potassium 4.5 mmol/L (3.4-5.1); Sodium 141 mmol/L (137-145)
[2024-08-18 08:30] LABS: Free T3, Triiodothyronine Free 3.76 pg/mL (2.77-5.27); Free T4, Direct Thyroxine 1.13 ng/dL (0.78-2.19)
[2024-08-18 08:44] LABS: Thyroid Stimulating Hormone 5.59 uIU/mL (0.47-4.68)
== END ==
PROVIDERS: PCP Family Medicine; Referring Provider Family Medicine; Visit Provider Family Medicine
DX: E03.2 Hypothyroidism due to medicaments and other exogenous substances (principal); I10 Essential (primary) hypertension; E78.5 Hyperlipidemia, unspecified
CPT/HCPCS: 36415; 80048; 84439; 84443; 84481

== ENCOUNTER → 2024-09-08 13:46 | Outpatient (CLI) | payer MEDICARE, OTHER, SELFPAY ==
[2024-09-08 16:15] LABS: MRSA (Nasal) PCR NOT DETECTED (Not Detect)
== END ==
PROVIDERS: PCP Family Medicine; Visit Provider Family Medicine
DX: Z01.818 Encounter for other preprocedural examination (principal)
CPT/HCPCS: 87797

== ENCOUNTER → 2024-09-10 07:04 | Outpatient (CLI) | payer MEDICARE, OTHER, SELFPAY ==
--- NOTE | 2024-09-10 07:07 | EKG_ITS ---
[address] [address] Test Date: 2024-09-10 Pat Name: Amanda Chopra Department: [facility] Room: Gender: Female Neon Pumper: DIEUDONNE : 1950 Requested By: Order Number: [id number] Reading MD: Balbir Lopez MD Measurements Intervals [place] Rate: 52 P: 45 NM: 158 QRS: 13 QRSD: 92 T: 41 QT: 464 QTc: 431 Interpretive Statements Sinus bradycardia Electronically Signed On 09-10-2024 13:45:10 PDT by Balbir Lopez MD
[2024-09-10 07:36] LABS: Add Manual Diff / Slide Review NO; Basophils Absolute Auto 100 /uL (0-100); Basophils Percent Auto 1.2 % (0-2); Eosinophils Absolute Auto 100 /uL (0-450); Eosinophils Percent Auto 2.1 % (2-4); Hematocrit 38.8 % (36-46); Hemoglobin 13.1 g/dL (12.0-16.0); Lymphocytes Absolute Auto 1900 /uL (1100-4500); Lymphocytes Percent Auto 44.3 % (25-40); Mean Corpuscular HGB Conc 33.7 % (30-36); Mean Corpuscular Hemoglobin 33.2 PG (26-34); Mean Corpuscular Volume 98.3 fL (80-100); Monocytes Absolute Auto 500 /uL (0-900); Monocytes Percent Auto 11.3 % (3-14); Neutrophils Absolute Auto 1800 /uL (1500-7000); Neutrophils Percent Auto 41.1 % (50-75); Platelet Count 250 X10^3/uL (150-400); Red Blood Cell Count 3.95 X10^6/uL (4.0-5.2); Red Cell Distribution Width 12.7 % (11.6-14.8); White Blood Cell Count 4.3 X10^3/uL (4.5-11.0)
[2024-09-10 07:50] LABS: Alanine Aminotransferase 20 IU/L (<35); Albumin 4.4 g/dL (3.5-5.0); Albumin Globulin Ratio 1.6 (1.0-2.8); Alkaline Phosphatase 74 U/L (38-126); Aspartate Aminotransferase 27 IU/L (14-36); BUN Creatinine Ratio 16.4 (6-22); Bilirubin Total 0.8 mg/dL (0.2-1.3); Blood Urea Nitrogen 19 mg/dL (7-17); Calcium 9.3 mg/dL (8.4-10.2); Carbon Dioxide 26 mmol/L (22-32); Chloride 104 mmol/L (98-107); Estimated Glomerular Filt Rate 49 mL/min (>60); Globulin 2.8 g/dL (1.7-4.1); Glucose 100 mg/dL (80-110); HEMOLYSIS < 15 (0-50); Potassium 4.5 mmol/L (3.4-5.1); Sodium 139 mmol/L (137-145); Total Protein 7.2 g/dL (6.3-8.2)
[2024-09-10 08:41] LABS: Vitamin B12 812 pg/mL (239-931)
== END ==
PROVIDERS: PCP Family Medicine; Referring Provider Family Medicine; Visit Provider Family Medicine
DX: Z01.818 Encounter for other preprocedural examination (principal); I10 Essential (primary) hypertension; I48.91 Unspecified atrial fibrillation; E53.8 Deficiency of other specified B group vitamins
CPT/HCPCS: 36415; 80053; 82607; 85025; 93005

== ENCOUNTER → 2025-05-25 08:16 | Outpatient (CLI) | payer MEDICARE, OTHER, SELFPAY ==
[2025-05-25 09:22] LABS: Add Manual Diff / Slide Review NO; Hematocrit 33.6 % (36-46); Hemoglobin 11.4 g/dL (12.0-16.0); Lymphocytes Absolute Auto 1100 /uL (1100-4500); Mean Corpuscular HGB Conc 34.0 % (30-36); Mean Corpuscular Hemoglobin 31.8 PG (26-34); Mean Corpuscular Volume 93.6 fL (80-100); Platelet Count 358 X10^3/uL (150-400)
[2025-05-25 09:53] LABS: Alanine Aminotransferase 27 IU/L (<35); Albumin 3.7 g/dL (3.5-5.0); Albumin Globulin Ratio 1.1 (1.0-2.8); Alkaline Phosphatase 112 U/L (38-126); Blood Urea Nitrogen 20 mg/dL (7-17); Calcium 8.9 mg/dL (8.4-10.2); Carbon Dioxide 23 mmol/L (22-32); Chloride 108 mmol/L (98-107); Cholesterol 173 mg/dL (140-199); Estimated Glomerular Filt Rate > 60 mL/min (>60); Globulin 3.4 g/dL (1.7-4.1); Glucose 102 mg/dL (70-99); HDL Cholesterol 58 mg/dL (40-60); HEMOLYSIS < 15 (0-50); Potassium 4.9 mmol/L (3.4-5.1); Sodium 140 mmol/L (137-145); Total Protein 7.1 g/dL (6.3-8.2); Triglycerides 54 mg/dL (35-150)
== END ==
PROVIDERS: PCP Family Medicine; Referring Provider Family Medicine; Visit Provider Internal Medicine
DX: I10 Essential (primary) hypertension (principal); I48.19 Other persistent atrial fibrillation
CPT/HCPCS: 36415; 80053; 80061; 85025